=== PATIENT | female | born 1975 | race African-American/Black ===

== ENCOUNTER 2020-06-05 13:21 | Emergency (ER) | payer OTHER, SELFPAY ==
--- NOTE | ~2020-06-05 | XR_ITS ---
EXAMINATION: XR finger 5th LT min 2V DATE: 06/05/2020 13:40 INDICATION: Left fifth digit injury TECHNIQUE: Dorsal palmar, lateral and oblique views of the left fifth digit were obtained COMPARISON: None FINDINGS: Dorsal dislocation of the fifth middle phalanx at the proximal interphalangeal joint. No fracture tatiana ntified. Alignment and joint spaces and the remainder of the visualized left hand are normal. IMPRESSION: 1. Dorsal dislocation at the left fifth proximal interphalangeal joint. Reviewed, dictated and finalized at location A.
--- NOTE | ~2020-06-05 | XR_ITS ---
XR finger 5th LT min 2V DATE: 06/05/2020 14:23 INDICATION: Fifth digit injury yesterday. Pain. TECHNIQUE: Postoperative reduction AP and lateral views COMPARISON: 06/05/2020 left fifth digit FINDINGS: There is reduction of the previously reported dorsal dislocation at the proximal interphala ngeal joint. No fracture is evident. IMPRESSION: Reduction of dorsal dislocation at the proximal interphalangeal joint Reviewed, dictated and finalized at location A. IMPRESSION: Reduction of dorsal dislocation at the proximal interphalangeal asuncion nt
[2020-06-05 13:32] VITALS: BP 144/78; PULSE 97; RESP 16; TEMP 37.4; O2SAT 98
--- NOTE | 2020-06-05 14:06 | ED.UPPEXIN ---
HPI - Extremity Injury (Upper) General Chief Complaint: Extremity Injury, Upper Stated Complaint: riight hand 5th finger injury Time Seen by Provider: 06/05/20 13:49 Source: patient and RN notes reviewed Mode of arrival: ambulatory Limitations: no limitations History of Present Illness HPI narrative: Patient presents today complaint of injury to her left fifth finger. She injured it last night, causing pain. Denies numbness or tingling. Currently rates her pain 9/10 and has tried no [id number] interventions prior to arrival. Pain increases with movement. MD complaint: injury to: left and finger Related Data Home Medications Medication Instructions Recorded Confirmed amlodipine 06/05/20 hydrochlorothiazide 06/05/20 lisinopril-hydrochlorothiazide tablet 06/05/20 losartan 06/05/20 paroxetine HCl mg PO 06/05/20 trazodone 06/05/20 Allergies Allergy/AdvReac Type Severity Reaction Status Date / Time No Known Allergies Allergy Unknown Verified 09/24/19 18:44 Review of Systems Review of Systems: Narrative: CONSTITUTIONAL: Denies body aches, fever, chills, or sweats. EYES: Denies visual changes, redness, or discharge. ENT: Denies rhinorrhea, congestion, sore throat, or otalgia. CARDIOVASCULAR: Denies chest pain, palpitations, or edema. RESPIRATORY: Denies cough or dyspnea. GASTROINTESTINAL: Denies abdominal pain, nausea, vomiting, or diarrhea. GENITOURINARY: Denies dysuria or hematuria. SKIN: Denies rash, itching, or wounds. MUSCULOSKELETAL: Denies back pain, or myalgia. + Injury to left fifth finger NEUROLOGIC: Denies headache, numbness, tingling, or weakness. PSYCH: Denies depression or anxiety. PMFSH Comments At time of signature, I have reviewed and agree with nursing past medical, surgical, social and family history unless otherwise noted. Please see nursing chart for further information. There is no relevant family history pertinent to the presenting complaint Exam Narrative: Exam Narrative: GENERAL: Well-appearing, well-nourished, and in no acute distress. HEAD: Normocephalic, atraumatic. EYES: EOMI. No redness or drainage. Conjunctivae normal. ENT: Mucous membranes pink and moist. NECK: Normal AROM. Supple. No lymphadenopathy. CHEST: No respiratory distress. EXTREMITIES: Deformity to the left fifth finger, distal to the PIP. Distal sensation intact. Capillary refill normal. AROM is limited. No color change. SKIN: Warm, dry, no rash. Capillary refill normal. Normal skin turgor. NEURO: No focal deficits. Alert and oriented x3. Gait steady. PSYCH: Normal affect. No signs of depression or anxiety. Course Vital Signs Vital signs: Vital Signs Temperature 99.4 F 06/05/20 13:32 Pulse Rate 97 06/05/20 13:32 Respiratory Rate 16 06/05/20 13:32 Blood Pressure 144/78 H 06/05/20 13:32 Pulse Oximetry 98 06/05/20 13:32 Temperature 99.4 F 06/05/20 13:32 Pulse Rate 97 06/05/20 13:32 Respiratory Rate 16 06/05/20 13:32 Blood Pressure 144/78 H 06/05/20 13:32 Pulse Oximetry 98 06/05/20 13:32 Reviewed. Pt has been instructed to follow up with her PCP regarding her elevated blood pressure today. Procedures Orthopedic Joint Reduction Joint #1: Orthopedic Joint Reduction Date: 06/05/20 Orthopedic Joint Reduction Time: 14:06 Time Out Performed: Yes Side: left Joint Reduction Location: finger Analgesia: nerve block Pre-Procedure Neuro Vascular Exam: normal Local Anesthesia: lidocaine 1% Amount of anesthesic used (mL): 6 Shoulder Technique Used (if applicable): traction/counter-traction Post-reduction neuro exam: intact Post-reduction vascular: intact Post Reduction X-Ray Obtained: Yes Post Reduction X-Ray Results: reduced Splint Applied: Yes Patient Tolerated Procedure: well MDM - Extremity Injury (Upper) Imaging Data Radiologist's impression: ITS Impres
== END 2020-06-05 14:49 | disposition home or self-care (01) ==
PROVIDERS: Emergency Provider Nurse Practitioner
DX: S63.287A Dislocation of proximal interphalangeal joint of left little finger, initial encounter (principal); X58.XXXA Exposure to other specified factors, initial encounter; E78.00 Pure hypercholesterolemia, unspecified; I10 Essential (primary) hypertension
CPT/HCPCS: 26770; 73140; 99215; G0463

== ENCOUNTER 2021-11-06 13:22 | Outpatient (CLI) | payer OTHER, SELFPAY ==
--- NOTE | ~2021-11-06 | US_ITS ---
EXAMINATION: US pelvic complete w TV DATE: 11/06/2021 14:03 INDICATION: Excessive and frequent menstruation TECHNIQUE: Multiple transabdominal and endovaginal sonographic images of the pelvis were obtained. COMPARISON: None. FINDINGS: The uterus measures 9.3 x 5.1 x 4.9 cm. There is a 2.1 cm intramural fibroid of the uterine fundus. There is a 1.6 cm intramural fibroid of the lower anterior uterine body. The endometrial com plex measures 9 mm. The ovaries are not visualized however no adnexal abnormality is seen. There is n o free fluid in the pelvis. IMPRESSION: 1. Uterine fibroid, otherwise unremarkable examination. Reviewed, dictated and finalized at location A. AGENT
== END 2021-11-06 13:23 | disposition home or self-care (01) ==
LOC: ANHIMG 13:28
PROVIDERS: PCP Physician Assistant; Visit Provider Physician Assistant
DX: N92.0 Excessive and frequent menstruation with regular cycle (principal)
CPT/HCPCS: 76830; 76856

== ENCOUNTER 2022-04-28 14:33 | Inpatient (IN) | payer OTHER, SELFPAY ==
--- NOTE | ~2022-04-28 | NM_ITS ---
EXAMINATION: NM hepatobiliary wo pharm DATE: 05/01/2022 13:51 INDICATION: Cholecystitis. COMPARISON: Ultrasound 04/29/2022, CT abdomen and pelvis 04/28/2022 TECHNIQUE: 5.9 mCi Tc-99m mebrofenin (Choletec) was administered intravenously. Scintigraphic images of the abdomen were obtained for one hour. FINDINGS: There is delayed clearance of radiotracer from the blood pool. There is homogeneous tracer uptake by the liver. Activity progresses to the bowel and gallbladder. IMPRESSION: 1. No evidence of acute cholecystitis. 2. Delayed clearance of radiotracer from the blood pool, consistent with hepatocellular dysfunction. Reviewed, dictated and finalized at location A. IMPRESSION: 1. No evidence of acute cholecystitis. 2. Delayed clearance of radiotracer from the blood pool, consistent with hepato cellular dysfunction.
--- NOTE | ~2022-04-28 | US_ITS ---
US abdomen limited INDICATION: Right upper quadrant pain PROCEDURE: Realtime right upper abdominal ultrasound. COMPARISON: CT dated 04/28/2022 FINDINGS: The pancreas is normal without focal mass or pancreatic ductal dilation. Liver echotexture is diffusely increased, consistent with fatty infiltration. The hypodense mass seen on prior CT exam ination not appreciated on ultrasound. Examination limited by patient body habitus. There are mobile echogenic foci with posterior shadowing. There is gallbladder wall thickening. Positive sonographic Hawkins's sign. Common bile duct measures 6 mm. IMPRESSION: 1: Cholelithiasis with gallbladder wall thickening and positive sonographic Hawkins's sign, suspicious for acute cholecystitis. 2: Hypodense mass seen within the right hepatic lobe on prior CT is not appreciated by current study. Recommend correlation with MRI with and without contrast for further assessment. 2: Hepatic steatosis. Reviewed, dictated and finalized at location A. IMPRESSION: 1: Cholelithiasis with gallbladder wall thickening and positive sonographic Mur phy's sign, suspicious for acute cholecystitis. 2: Hypodense mass seen within the right hepatic lobe on prior CT is not appreci ated by current study. Recommend correlation with MRI with and without contrast for further assessment. 2: Hepatic steatosis.
--- NOTE | ~2022-04-28 | CT_ITS ---
EXAMINATION: CT abdomen pelvis wo con DATE: 04/28/2022 20:00 INDICATION: Abdomen pain, nausea and vomiting TECHNIQUE: Computed tomography (CT) of the abdomen and pelvis was performed without intravenous contr ast. The dose-length product was 1564.62 mGy-cm. Automated exposure control and iterative reconstruct ion technique were employed. COMPARISON: Ultrasound dated 11/06/2021. FINDINGS: Lung bases are unremarkable. Heart size normal. No significant pleural or pericardial effus ion. No significant vascular abnormality. No lymphadenopathy. The spleen, pancreas, adrenal glands an d kidneys are unremarkable. There is a subtle 1.5 cm hypodense lesion of the right hepatic lobe, not well characterized without contrast. Gallbladder is present. Possible gallstones. Nonobstructive bowel gas pattern. Small fat-containing umbilical hernia. Normal appendix. There is an exophytic uterine fibroid at the fundus measuring up to 5 cm. No free air or free fluid. Mild lumbar spondylosis. IMPRESSION: 1. Possible gallstones. Consider correlation with ultrasound. 2: Hypodense 1.5 cm mass of the right hepatic lobe not well characterized without contrast. Consider correlation with ultrasound. Reviewed, dictated and finalized at location A. IMPRESSION: 1. Possible gallstones. Consider correlation with ultrasound. 2: Hypodense 1.5 cm mass of the right hepatic lobe not well characterized witho ut contrast. Consider correlation with ultrasound.
[2022-04-28 14:45] VITALS: BP 157/107; PULSE 104; RESP 17; TEMP 36.6; O2SAT 98
--- NOTE | 2022-04-28 15:05 | ED.NAVMDI ---
HPI - Nausea/Vomiting/Diarrhea General Chief complaint: Nausea/Vomiting/Diarrhea <MAYRA Diaz Last Filed: 04/29/22 08:51> Stated complaint: nausea and vomiting with dizziness <MAYRA Diaz Last Filed: 04/29/22 08:51> Time Seen by Provider: 04/28/22 14:46 <MAYRA Diaz Last Filed: 04/29/22 08:51> History of Present Illness HPI Narrative: Patient is a 46-year-old female with a history of high blood pressure here for evaluation of nausea, vomiting for the past 3 days. Patient states she has been unable to tolerate any p.o., and notes that she vomits green/yellow emesis after every p.o. trial. Additionally reporting some lower abdominal discomfort with no exacerbating or alleviating factors. Denies new foods, no sick contacts. Patient presents today due to new onset numbness and tingling in her bilateral lower extremities and also over her abdomen, in addition to feeling weak. Fevers, chills, dysuria, hematuria, low back pain, diarrhea, constipation. Denies history of previous. <MAYRA Diaz Last Filed: 04/29/22 08:51> Related Data Home medications: Home Medications Medication Instructions Recorded Confirmed amlodipine 10 mg tablet 1 tablet PO DAILY 04/28/22 04/28/22 hydrochlorothiazide 12.5 mg capsule 1 cap PO DAILY 04/28/22 04/28/22 trazodone 100 mg tablet 1 tablet PO PRN PRN Insomnia 04/28/22 04/28/22 <MAYRA Diaz Last Filed: 04/29/22 08:51> Allergies/Adverse reactions: Allergies Allergy/AdvReac Type Severity Reaction Status Date / Time No Known Allergies Allergy Unknown Verified 04/28/22 22:03 <MAYRA Diaz Last Filed: 04/29/22 08:51> Review of Systems Review of Systems: Gen.: Denies fevers or chills Eyes: Denies eye pain or visual change ENT: Denies congestion Respiratory: Denies shortness of breath or cough CV: Denies chest pain or palpitations GI: Reports abdominal pain, nausea, vomiting. denies burning, urgency, frequency or hematuria Musculoskeletal: Denies back pain or muscle pain Neuro: Reports numbness and tingling of the bilateral lower extremities. 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 Head: normocephalic and atraumatic. EYES: PERRLA/EOMI, conjunctivae clear NOSE: No nasal drainage EARS: External ear normal in appearance THROAT: Oropharynx is clear. Mucous membranes are moist. NECK: Supple. No adenopathy, no masses. RESPIRATORY: Airway patent, respirations nonlabored. Clear to auscultation bilaterally, no rales, rhonchi, wheezing. CARDIOVASCULAR: 2+ DP and PT pulses bilaterally. Regular rate and rhythm without murmurs, rubs, or gallops. ABDOMINAL: Normoactive bowel sounds. Soft, nontender, nondistended. No rebound tenderness or guarding. MUSCULOSKELETAL: Extremities are warm and well-perfused. Moves all extremities well. No edema. NEURO: Normal speech. No focal neurologic deficits. SKIN: Skin is warm and dry. No rashes. PSYCHIATRIC: Normal affect/mood. <MAYRA Diaz Last Filed: 05/29/22 08:51> Course QUALITY ASSURANCE MONITOR FINAL/PA Physician Supervision
[2022-04-28] MEDS: ONDANSETRON INJ 4 MG/2 ML VIAL IV PUSH (15:20)
[2022-04-28] MEDS: SODIUM CHLORIDE 0.9% IV 1,000 ML 999 ML IV CONT ×2 (15:20→17:54)
[2022-04-28 16:07] LABS: Basophils Absolute Auto 0.1 K/mm3 (0.0-0.1); Basophils Percent Auto 1.1 % (0.2-1.2); Eosinophils Percent Auto 0.1 % (0-4.4); Hematocrit 39.5 % (37.0-47.0); Hemoglobin 13.4 g/dL (12.0-15.0); Immature Granulocyte Absolute 0.06 K/mm3 (0.00-0.031); Immature Granulocyte Percent A 0.6 % (0-0.5); Lymphocytes Absolute Auto 1.31 K/mm3 (0.9-3.2); Lymphocytes Percent Auto 12.5 % (18.3-44.2); Mean Corpuscular HGB Conc 33.9 g/dl (32-36); Mean Corpuscular Hemoglobin 34.9 pg (26-34); Mean Corpuscular Volume 102.9 fl (80-100); Mean Platelet Volume 10.1 fl (7.4-10.4); Monocytes Absolute Auto 0.8 K/mm3 (0.1-0.6); Monocytes Percent Auto 7.5 % (2.6-8.5); Neutrophils Absolute Auto 8.2 K/mm3 (1.3-6.7); Neutrophils Percent Auto 78.2 % (45.5-73.1); Nucleated Red Blood Cells Perc 0.3 % (0.0-0.2); Platelet Count Result 382 k/mm3 (150-375); Red Blood Count 3.84 M/mm3 (4.2-5.4); White Blood Count 10.5 K/mm3 (4.5-10.0)
[2022-04-28 16:25] LABS: Alanine Aminotransferase 49 U/L (6-35); Alkaline Phosphatase 59 U/L (38-126); Anion Gap 12 mmol/L (8-16); Aspartate Amino Transferase 127 U/L (14-36); Bilirubin,Total 1.9 mg/dL (0.2-1.3); Blood Urea Nitrogen 5 mg/dL (7-17); Calcium 7.5 mg/dL (8.4-10.2); Carbon Dioxide 34 mmol/L (22-30); Chloride 90 mmol/L (98-107); Estimated CRCL calculation 95 ml/min; Estimated Glomerular Filt Rate > 60; Glucose 95 mg/dL (65-110); Potassium 2.6 mmol/L (3.4-5.0); Sodium 136 mmol/L (137-145)
--- NOTE | 2022-04-28 16:28 | ECG_ITS ---
Measurements Intervals [place] Rate: 83 P: 44 PA: 150 QRS: -24 QRSD: 80 T: 61 QT: 372 QTc: 439 Interpretive Statements SINUS RHYTHM VENTRICULAR PREMATURE COMPLEX POOR R WAVE PROGRESSION, CONSIDER ANTERIOR INFARCT INFERIOR INFARCT, AGE INDETERMINATE BORDERLINE ST-T WAVE ABNORMALITY- ANT/HIGH LAT LEADS ABNORMAL ECG Electronically Signed On 04-28-2022 21:06:10 CDT by Armin Story D.O.
[2022-04-28 16:43] VITALS: PULSE 87
[2022-04-28 16:45] VITALS: PULSE 88; RESP 17
[2022-04-28 16:59] LABS: Phosphorus 3.9 mg/dL (2.5-4.5)
[2022-04-28] MEDS: METOCLOPRAMIDE HCL INJ 10 MG/2 ML VIAL IV PUSH (17:54)
[2022-04-28] MEDS: diphenhydrAMINE HCl INJ 50 MG/ML VIAL 25 MG IV PUSH (17:56)
[2022-04-28] MEDS: POTASSIUM CHLORIDE 20 MEQ PACKET (FOR LIQUID) 40 MEQ PO (18:03)
[2022-04-28 19:02] LABS: Lipase 82 U/L (23-300)
--- NOTE | 2022-04-28 19:20 | PC.NURSE ---
Report received from GUSTAVO Russell. This nurse assumed care of patient at this time.
[2022-04-28] MEDS: MAGNESIUM SULF 2 GM/WATER 50ML 2 GM/50 ML BAG IVPB (19:35)
[2022-04-28 19:48] LABS: Appearance Urine Slightly Cloudy (Clear); Bilirubin Urine 2+ (Negative); Color Urine Yellow (Yellow); Glucose Urine UA Negative (Negative); Ketones Urine 1+ mg/dL (Negative); Leukocyte Esterase Ur 1+ LEU/UL (Negative); Nitrate Urine Positive (Negative); Protein Urine 2+ mg/dL (Negative); Specific Grav Ur >= 1.030 (1.001-1.035); pH Urine 5.5 (5.0-9.0)
--- NOTE | 2022-04-28 19:52 | PC.NURSE ---
Patient taken to CT at this time.
[2022-04-28 19:54] LABS: Add Urine Microscopic? YES; Bacteria Urine 4+ /hpf; Blood Urine Trace-Intact (Negative); Mucus Urine Rare /lpf; Squamous Epithelial Cell Urine Many /hpf (Few); WBC Urine 21-30 /hpf
[2022-04-28 20:00] LABS: Anion Gap 8 mmol/L (8-16); Blood Urea Nitrogen 5 mg/dL (7-17); Calcium 7.1 mg/dL (8.4-10.2); Carbon Dioxide 34 mmol/L (22-30); Chloride 93 mmol/L (98-107); Estimated CRCL calculation 106 ml/min; Estimated Glomerular Filt Rate > 60; Glucose 90 mg/dL (65-110); Potassium 3.1 mmol/L (3.4-5.0); Sodium 135 mmol/L (137-145)
[2022-04-28 20:09] LABS: Magnesium 1.2 mg/dL (1.6-2.3)
--- NOTE | 2022-04-28 20:43 | PM.IMHP ---
H&P: [facility] History of Present Illness Date/Time: 04/28/22 20:43 Chief Complaint: nausea and vomiting Narrative: 46-year-old female with past medical history significant for high blood pressure is presenting with a 2-3 day history of nausea and vomiting. Patient states she is having difficulty tolerating any p.o. intake without vomiting up green yellow emesis. She also admitted to some lower abdominal pain that appears constant is not correlated with position or food intake. She denies any fevers or chills. No diarrhea or constipation. No chest pain or shortness of breath. Today she did notice some generalized weakness and some numbness and tingling in her bilateral lower extremities and lower abdomen. She states she has never felt anything like this before. Home medications are significant for Norvasc, hydrochlorothiazide and control pills and she denies missing any recent doses. In the ER, she was noted to have significant hypokalemia, hypomagnesemia and mild anion gap acidosis likely secondary to the emesis. She had a mild transaminitis as well. She was given Zofran regularly in as well as repletion of potassium and magnesium. Symptoms improved with these antiemetics. Urinalysis was negative for infection or . CT scan did show cholelithiasis and right upper quadrant ultrasound is pending. Review of Systems Review of Systems: Twelve point review of systems was reviewed and is negative except as noted in the [facility] Social History Social History Smoking status: Never smoker Alcohol intake: current Drinks per week: 7 Substance use: never Substance use type: does not use Other substance usage details: pt drinks 1/5 of mandy or whiskey per day since she was 42 Last use: 04/25/22 Spiritual care concerns: No Meds Home Medications and Allergies Home Medications Medication Instructions Recorded Confirmed Type amlodipine 10 mg tablet 1 tablet PO DAILY 04/28/22 04/28/22 History hydrochlorothiazide 12.5 mg capsule 1 cap PO DAILY 04/28/22 04/28/22 History trazodone 100 mg tablet 1 tablet PO PRN PRN Insomnia 04/28/22 04/28/22 History Allergies Allergy/AdvReac Type Severity Reaction Status Date / Time No Known Allergies Allergy Unknown Verified 04/28/22 22:03 Vital Signs Vital Signs - 24 hr 04/28/22 14:45 04/28/22 16:43 04/28/22 16:45 Temperature 98 F Pulse Rate 104 H 87 88 Respiratory Rate 17 17 Blood Pressure 157/107 H Pulse Oximetry 98 Exam Narrative: General: Patient resting comfortably in bed, no acute distress HEENT: Atraumatic, normocephalic, mucous membranes moist CV: Regular rate and rhythm, S1, S2, no murmurs rubs or gallops noted Lungs: Clear to auscultation bilaterally, no rales or crackles noted, no wheezes, good air entry Abdomen: Soft, nontender, nondistended Extremities: Normal to inspection, no edema noted Skin: No rashes noted, no lesions or wounds seen Psych: Euthymic, normal affect Neuro: Cranial nerves 2-12 grossly intact, strength 5/5 upper and lower extremities noted H&P: Results Labs Labs: Short CBC 04/28/22 Range/Units 15:52 WBC 10.5 H (4.5-10.0) K/mm3 Hgb 13.4 (12.0-15.0) g/dL Hct 39.5 (37.0-47.0) % Plt Count 382 H (150-375) k/mm3 BMP 04/28/22 04/28/22 15:52 19:46 Sodium 136 L 135 L Potassium 2.6 L* 3.1 L Chloride 90 L 93 L Carbon Dioxide 34 H 34 H BUN 5 L 5 L Creatinine 0.90 0.80 Glucose 95 90 Calcium 7.5 L 7.1 L Liver Function 04/28/22 Range/Units 15:52 Total Bilirubin 1.9 H (0.2-1.3) mg/dL AST 127 H (14-36) U/L ALT 49 H (6-35) U/L Alkaline Phosphatase 59 (38-126) U/L Albumin 4.0 (3.5-5.1) g/dL Urine 04/28/22 Range/Units 19:33 Urine Color Yellow (Yellow) Urine Appearance Slightly cloudy (Clear) Urine pH 5.5 (5.0-9.0) Ur Specific Clarence >= 1.030 (1.001-1.035)
[2022-04-28 21:02] VITALS: BP 152/86; PULSE 67; RESP 25
[2022-04-28 21:24] VITALS: BP 148/91; PULSE 95; RESP 20; O2SAT 98
--- NOTE | 2022-04-28 21:35 | ADMGEN ---
This patient, Opal Godinez, was admitted to Medical Room 253-01. Patient/family oriented to hospital policies and general routines including ID bracelet, bed and alarms, visiting hours, pain management, procedures, bathroom and other care routines, personal items, smoking policy, room service/diet, and visiting hours. Information on how to activate the Rapid Response Team has been discussed. Patient/Family are encouraged to report perceived risks to care and to ask questions if they do not understand what they are told or what they should do.
[2022-04-28 21:57] VITALS: BP 136/73; PULSE 91; RESP 18; TEMP 36.6; O2SAT 94; BMI 47.6
[2022-04-28] MEDS: SODIUM CHLORIDE 0.9% IV 1,000 ML 125 ML IV CONT (22:05)
[2022-04-29 04:46] VITALS: BP 147/87; PULSE 86; RESP 12; TEMP 36.6; O2SAT 93
[2022-04-29 05:23] LABS: Hematocrit 36.1 % (37.0-47.0); Hemoglobin 11.8 g/dL (12.0-15.0); Mean Corpuscular HGB Conc 32.7 g/dl (32-36); Mean Corpuscular Hemoglobin 34.6 pg (26-34); Mean Corpuscular Volume 105.9 fl (80-100); Mean Platelet Volume 10.8 fl (7.4-10.4); Platelet Count Result 226 k/mm3 (150-375); Red Blood Count 3.41 M/mm3 (4.2-5.4); Red Cell Distribution Width 19.3 % (11.5-14.5); White Blood Count 8.6 K/mm3 (4.5-10.0)
[2022-04-29 06:02] LABS: Alanine Aminotransferase 30 U/L (6-35); Alkaline Phosphatase 39 U/L (38-126); Anion Gap 8 mmol/L (8-16); Aspartate Amino Transferase 82 U/L (14-36); Bilirubin,Total 1.6 mg/dL (0.2-1.3); Blood Urea Nitrogen 5 mg/dL (7-17); Calcium 6.9 mg/dL (8.4-10.2); Carbon Dioxide 29 mmol/L (22-30); Chloride 98 mmol/L (98-107); Estimated CRCL calculation 116 ml/min; Estimated Glomerular Filt Rate > 60; Glucose 87 mg/dL (65-110); Magnesium 1.3 mg/dL (1.6-2.3); Potassium 3.1 mmol/L (3.4-5.0); Sodium 135 mmol/L (137-145)
[2022-04-29] MEDS: SODIUM CHLORIDE 0.9% IV 1,000 ML 125 ML IV CONT ×3 (06:13→23:44)
[2022-04-29 08:00] VITALS: PULSE 86; RESP 12; O2SAT 93
[2022-04-29] MEDS: MAGNESIUM SULF 2 GM/WATER 50ML 2 GM/50 ML BAG IVPB (08:26)
[2022-04-29] MEDS: POTASSIUM CHLORIDE 20 MEQ PACKET (FOR LIQUID) 40 MEQ PO (08:26)
[2022-04-29] MEDS: hydroCHLOROthiazide 12.5 MG CAPSULE PO (08:27)
[2022-04-29] MEDS: amLODIPine BESYLATE 5 MG TABLET 10 MG PO (08:27)
--- NOTE | 2022-04-29 09:07 | PC.NURSE ---
US abd scheduled for 3pm today
--- NOTE | 2022-04-29 09:56 | PC.NURSE ---
pt received magnesium 2 g iv and potassium 40 meq po this morning
--- NOTE | 2022-04-29 13:13 | PM.CNGS ---
Assessment and Plan Assessment and plan (1) Nausea and vomiting: Code(s): R11.2 - Nausea with vomiting, unspecified Status: Acute Assessment and Plan: patient presents with persistent nausea and vomiting over the past 2 weeks and was noted to have elevated liver enzymes on labs in the emergency department. While this could be related to her gallbladder, this also could be related to her history of heavy alcohol use. Awaiting further workup with gallbladder ultrasound today. After ultrasound, patient is okay to have a clear liquid diet and advance as tolerated. 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 If liver enzymes continue to rise, she might need further evaluation by GI. (2) Upper abdominal pain: Code(s): R10.10 - Upper abdominal pain, unspecified Status: Acute (3) Elevated liver enzymes: Code(s): R74.8 - Abnormal levels of other serum enzymes Status: Acute (4) BMI 45.0-49.9, adult: Code(s): Z68.42 - Body mass index [BMI] 45.0-49.9, adult Status: Acute (5) Heavy alcohol use: Code(s): Z78.9 - Other specified health status Status: Acute History of Present Illness Consult details Consult date: 04/29/22 Reason for consult: other ( Upper abdominal pain) Requesting physician: Lindy Oden DO Narrative: this is a 46-year-old woman who I am asked to see for possible cholelithiasis. The patient presented to the emergency department on 04/28/2022 with nausea and vomiting and upper abdominal pain. The patient states that her nausea and vomiting has been going on for the past 2 weeks. She does not recall anything that she ate that started this. She has no other ill contacts. She states that she can have the nausea and vomiting even with drinking water. She began experiencing some upper abdominal pain after the nausea and vomiting started. She states that this feels more like a muscle pain from vomiting so much. She has had some diarrhea but this has not been very frequent. In the emergency department she was noted to have some electrolyte abnormalities and was also noted to have elevated liver enzymes. CT abdomen and pelvis without contrast in the emergency department showed possible cholelithiasis but no other acute abnormalities. She was admitted for further workup and treatment. She has an ultrasound scheduled for today but it has not been done yet. Review of Systems Review of Systems: All systems reviewed & are unremarkable except as noted in HPI and below Constitutional: Constitutional: Denies chills and Denies fever(s) Eyes: Eyes: Denies change in vision ENT: Denies hearing loss, Denies neck pain and Denies sore throat Cardiovascular: Cardiovascular: Denies chest pain and Denies dyspnea Respiratory: Respiratory: Denies cough, Denies dyspnea and Denies wheezing Gastrointestinal: Gastrointestinal: Reports as per HPI Genitourinary: Genitourinary: Denies hematuria and Denies dysuria Musculoskeletal: Musculoskeletal: Denies arthralgias, Denies joint swelling and Denies neck pain Allergic/Immunologic: Allergic/Immunologic: Denies wheezing [facility] Past Medical History Medical History (Updated 04/29/22 @ 13:20 by Los Dill DO) Hypertension Surgical History Surgical History (Updated 04/29/22 @ 13:18 by Los Dill DO) History of tubal ligation Family History Family History Other Unknown family medical history Social History Social History Smoking status: Never smoker Alcohol intake: current Drinks per week: 7 Substance use: never Substance use type: does not use Other subst
[2022-04-29 13:15] VITALS: BP 146/84; PULSE 83; RESP 20; TEMP 36.6; O2SAT 92
--- NOTE | 2022-04-29 13:42 | PM.IMPN ---
Progress Note: A&P Assessment and Plan (1) Nausea and vomiting: Code(s): R11.2 - Nausea with vomiting, unspecified Status: Acute Assessment and Plan: Presented with persistent nausea and vomiting ongoing for 2 weeks May be related to cholelithiasis, right upper quadrant ultrasound pending Nausea/vomiting resolved Continue with clear liquid diet. Advance as tolerated Antiemetics available as needed Continue with gentle IV fluids until tolerating oral intake (2) Cholelithiasis: Code(s): K80.20 - Calculus of gallbladder without cholecystitis without obstruction Status: Acute Assessment and Plan: CT abdomen/pelvis showed possible gallstones Right upper quadrant ultrasound is pending Plan as above Appreciate general surgery consultation (3) Hypokalemia: Code(s): E87.6 - Hypokalemia Status: Acute Assessment and Plan: Likely secondary to nausea/vomiting Potassium 3.1 today Administer 40 mEq p.o. KCl Monitor BMP (4) Hypomagnesemia: Code(s): E83.42 - Hypomagnesemia Status: Acute Assessment and Plan: Likely secondary to nausea/vomiting Magnesium 1.3 Administer to g IV magnesium sulfate Repeat magnesium (5) Hypertension: Code(s): I10 - Essential (primary) hypertension Status: Acute Assessment and Plan: Blood pressure reviewed and has been stable. Last BP 146/84 Continue amlodipine and hydrochlorothiazide Monitor BP trends (6) Abnormal CT of liver: Code(s): R93.2 - Abnormal findings on diagnostic imaging of liver and biliary tract Status: Acute Assessment and Plan: CT of abdomen/pelvis showed hypodense 1.5 cm mass of right hepatic lobe Recommend ultrasound evaluation. Abdominal ultrasound pending Subjective Date/time seen: 04/29/22 13:42 Interval history: Date of service: 04/29/2022 Opal Godinez is a 46-year-old female with a history of hypertension who is seen in follow-up for nausea and vomiting. She is feeling slightly improved today. She describes a tightness in her stomach. She has mild pain in the right upper quadrant that she states radiates through to the back. No further episodes of nausea and vomiting. She is tolerating clear liquids. Denies fevers, chills. She complains of tingling in her lower extremities. Denies muscle cramping. Denies shortness breath, cough, or chest pain. Denies diarrhea. Denies urinary symptoms. Review of Systems Review of Systems: All systems reviewed & are unremarkable except as noted in HPI and below Exam Narrative: General: Obese, well-appearing 46-year-old female, lying supine in bed, comfortable, NARD Neuro: awake, alert and oriented x4, speech clear, no focal neuro deficits noted HEENMT: normocephalic, atraumatic, EOMI, sclerae anicteric, moist oral mucosa Respiratory: clear to auscultation bilaterally, nonlabored breathing Cardio: regular rate, regular rhythm with S1-S2 Abdomen: Obese abdomen normoactive bowel sounds, soft, tender to palpation in right upper quadrant, no rigidity or guarding Extremities: no edema, erythema, or tenderness to palpation, DP pulses 2+ bilaterally Skin: no rashes or lesions, warm and dry Psych: appropriate mood and affect, judgment and insight intact Objective Data Vital Signs Vital Signs: Vital Signs - 24 hr 04/28/22 14:45 04/28/22 16:43 04/28/22 16:45 Temperature 98 F Pulse Rate 104 H 87 88 Respiratory Rate 17 17 Blood Pressure 157/107 H Pulse Oximetry 98 Oxygen Delivery 04/28/22 21:02 04/28/22 21:24 04/28/22 21:57 Temperature 97.8 F Pulse Rate 67 95 91 Respiratory Rate 25 H 20 18 Blood Pressure 152/86 H 148/91 H 136/73 Pulse Oximetry 98 94 Oxygen Delivery 04/28/22 22:12 04/29/22 04:46 04/29/22 08:00 Temperature 97.8 F Pulse Rate 86 86 Respiratory Rate 12 12 Blood Pressure 147/87 H Pulse Oximetry 93 93 Oxygen Delivery Room
--- NOTE | 2022-04-29 14:24 | PC.NURSE ---
us to be done at pt bedside.
[2022-04-29 20:00] VITALS: PULSE 84; RESP 18; O2SAT 93
[2022-04-29 20:20] VITALS: BP 137/88; PULSE 84; RESP 18; TEMP 36.4; O2SAT 93
[2022-04-29] MEDS: traZODone HCL 50 MG TABLET 100 MG PO (20:42)
[2022-04-30 04:53] LABS: Basophils Absolute Auto 0.1 K/mm3 (0.0-0.1); Basophils Percent Auto 1.6 % (0.2-1.2); Eosinophils Absolute Auto 0.2 K/mm3 (0-0.3); Eosinophils Percent Auto 2.1 % (0-4.4); Hematocrit 35.1 % (37.0-47.0); Hemoglobin 12.2 g/dL (12.0-15.0); Immature Granulocyte Absolute 0.06 K/mm3 (0.00-0.031); Immature Granulocyte Percent A 0.8 % (0-0.5); Lymphocytes Absolute Auto 2.09 K/mm3 (0.9-3.2); Lymphocytes Percent Auto 27.4 % (18.3-44.2); Mean Corpuscular HGB Conc 34.8 g/dl (32-36); Mean Corpuscular Hemoglobin 35.6 pg (26-34); Mean Corpuscular Volume 102.3 fl (80-100); Mean Platelet Volume 9.5 fl (7.4-10.4); Monocytes Absolute Auto 0.8 K/mm3 (0.1-0.6); Monocytes Percent Auto 10.8 % (2.6-8.5); Neutrophils Absolute Auto 4.4 K/mm3 (1.3-6.7); Neutrophils Percent Auto 57.3 % (45.5-73.1); Platelet Count Result 311 k/mm3 (150-375); Red Blood Count 3.43 M/mm3 (4.2-5.4); Red Cell Distribution Width 18.7 % (11.5-14.5); White Blood Count 7.6 K/mm3 (4.5-10.0)
[2022-04-30 05:03] LABS: INR 1.2; Prothrombin Time 14.7 Seconds (11.1-14.7)
[2022-04-30 05:05] LABS: Alanine Aminotransferase 34 U/L (6-35); Albumin Level 3.2 g/dL (3.5-5.1); Alkaline Phosphatase 43 U/L (38-126); Anion Gap 6 mmol/L (8-16); Aspartate Amino Transferase 109 U/L (14-36); Bilirubin,Total 1.5 mg/dL (0.2-1.3); Blood Urea Nitrogen 3 mg/dL (7-17); Calcium 6.4 mg/dL (8.4-10.2); Carbon Dioxide 31 mmol/L (22-30); Chloride 96 mmol/L (98-107); Estimated CRCL calculation 134 ml/min; Estimated Glomerular Filt Rate > 60; Glucose 102 mg/dL (65-110); Magnesium 1.5 mg/dL (1.6-2.3); Partial Thromboplastin Time 28.2 SECONDS (22.3-36.8); Phosphorus 3.8 mg/dL (2.5-4.5); Potassium 2.7 mmol/L (3.4-5.0); Sodium 133 mmol/L (137-145)
[2022-04-30] MEDS: MAGNESIUM SULF 4 GM/WATER100ML 4 GM/100 ML BAG IVPB (05:45)
[2022-04-30] MEDS: POTASSIUM CHLORIDE INJ 40 MEQ in SODIUM CHLORIDE 0.9% IV 500 ML 130 MEQ IVPB (05:45)
[2022-04-30] MEDS: POTASSIUM CHLORIDE 20 MEQ PACKET (FOR LIQUID) 80 MEQ PO (05:45)
[2022-04-30 06:00] VITALS: BP 140/89; PULSE 88; RESP 14; TEMP 36.4; O2SAT 93
[2022-04-30] MEDS: ENOXAPARIN 40 MG/0.4 ML SYRINGE SUB-Q (08:23)
[2022-04-30] MEDS: ONDANSETRON INJ 4 MG/2 ML VIAL IV PUSH (08:50)
[2022-04-30] MEDS: amLODIPine BESYLATE 5 MG TABLET 10 MG PO (09:20)
[2022-04-30] MEDS: hydroCHLOROthiazide 12.5 MG CAPSULE PO (09:21)
[2022-04-30 09:42] VITALS: O2SAT 93
--- NOTE | 2022-04-30 10:20 | PM.PNGS ---
Progress Note: A&P Assessment and Plan (1) Chronic cholecystitis with calculus: Code(s): K80.10 - Calculus of gallbladder with chronic cholecystitis without obstruction Status: Acute Assessment and Plan: Continues to have N/V. Will get HIDA scan tomorrow. Patient is a heavy drinker. Watch for signs of withdrawal. Replace electrolytes. (2) Elevated liver enzymes: Code(s): R74.8 - Abnormal levels of other serum enzymes Status: Acute (3) Heavy alcohol use: Code(s): Z78.9 - Other specified health status Status: Acute (4) BMI 45.0-49.9, adult: Code(s): Z68.42 - Body mass index [BMI] 45.0-49.9, adult Status: Acute (5) Hypokalemia: Code(s): E87.6 - Hypokalemia Status: Acute (6) Hypomagnesemia: Code(s): E83.42 - Hypomagnesemia Status: Acute Subjective Subjective Date/Time Seen: 04/30/22 10:20 Interval history: Still having nausea and upper abdominal pain. Did well last night, but symptoms returned this morning. Exam GI: Inspection: non-distended and obesity GI Palp: Yes Soft to palpation and Yes Tenderness to palpation present (GI) (mild upper abdominal pain) Percussion: Yes normal to percussion Auscultation: normal bowel sounds Objective Data Vital Signs Vital Signs: Vital Signs - 24 hr 04/29/22 13:15 04/29/22 20:20 04/29/22 20:00 Temperature 36.6 C 36.4 C Pulse Rate 83 84 84 Respiratory Rate 20 18 18 Blood Pressure 146/84 H 137/88 Pulse Oximetry 92 93 93 Oxygen Delivery Room Air 04/30/22 06:00 04/30/22 09:42 Temperature 36.4 C Pulse Rate 88 Respiratory Rate 14 Blood Pressure 140/89 Pulse Oximetry 93 93 Oxygen Delivery Room Air Intake/Output Intake/Output: Intake & Output 04/27/22 04/28/22 04/29/22 04/30/22 23:59 23:59 23:59 23:59 Intake Total 2049 4160 750 Output Total 1700 Balance 2049 2460 750 Meds/Results Medications: Active Medications Generic Name Dose Route Start Last Admin Trade Name Freq PRN Reason Stop Dose Admin Amlodipine Besylate 10 mg 04/29/22 09:00 04/30/22 09:20 Amlodipine Besylate 5 Mg Tablet PO 10 mg DAILY NYLA Administration Enoxaparin Sodium 40 mg 04/30/22 09:00 04/30/22 08:23 Enoxaparin 40 Mg/0.4 Ml Syringe SUB-Q 40 mg DAILY NYLA Administration Hydrochlorothiazide 12.5 mg 04/29/22 09:00 04/30/22 09:21 Hydrochlorothiazide 12.5 Mg Capsule PO 12.5 mg DAILY NYLA Administration Sodium Chloride 1,000 mls @ 125 mls/hr 04/28/22 20:45 04/29/22 23:44 Normal Saline Iv IV CONT 125 mls/hr .Q8H NYLA Administration Acetaminophen 1,000 mg in 100 mls @ 400 mls/hr 04/29/22 12:13 04/30/22 08:40 Ofirmev 1,000 Mg Ivpb IVPB 04/30/22 12:12 Infused Q6H PRN Infusion Pain Rated 4-6 Ondansetron HCl 4 mg 04/30/22 08:31 04/30/22 08:50 Ondansetron Inj 4 Mg/2 Ml Vial IV PUSH 4 mg Q4H PRN Administration Nausea And Vomiting Trazodone HCl 100 mg 04/29/22 03:27 04/29/22 20:42 Trazodone Hcl 50 Mg Tablet PO 100 mg PRN PRN Administration Insomnia Radiology Results: ITS Impressions Abdomen/Pelvis CT 04/28/22 20:12 IMPRESSION: 1. Possible gallstones. Consider correlation with ultrasound. 2: Hypodense 1.5 cm mass of the right hepatic lobe not well characterized without contrast. Consider correlation with ultrasound. Abdomen Ultrasound 04/29/22 14:59 IMPRESSION: 1: Cholelithiasis with gallbladder wall thickening and positive sonographic Hawkins's sign, suspicious for acute cholecystitis. 2: Hypodense mass seen within the right hepatic lobe on prior CT is not appreciated by current study. Recommend correlation with MRI with and without contrast for further assessment. 2: Hepatic steatosis. Labs Labs: Laboratory Results - last 24 hr 04/30/22 04/30/22 04/30/22 04:42 04:42 04:42 WBC 7.6 RBC 3.43 L Hgb 12.2 Hct 35.1 L MCV 102.3 H MCH 35.6 H MC
[2022-04-30] MEDS: THIAMINE HCL 100 MG TABLET PO (11:42)
[2022-04-30] MEDS: FOLIC ACID 1 MG TABLET PO (11:42)
[2022-04-30] MEDS: SODIUM CHLORIDE 0.9% IV 1,000 ML 125 ML IV CONT (13:27)
--- NOTE | 2022-04-30 13:46 | PM.IMPN ---
Progress Note: A&P Assessment and Plan (1) Nausea and vomiting: Code(s): R11.2 - Nausea with vomiting, unspecified Status: Acute Assessment and Plan: Presented with persistent nausea and vomiting ongoing for 2 weeks May be related to cholelithiasis/cholecystitis RUQ ultrasound revealed gallstones with gallbladder wall thickening and positive sonographic Hawkins sign. Plan for HIDA scan tomorrow morning Continue with full liquid diet. Advance as tolerated Antiemetics available as needed Continue with gentle IV fluids until tolerating oral intake (2) Cholelithiasis: Code(s): K80.20 - Calculus of gallbladder without cholecystitis without obstruction Status: Acute Assessment and Plan: CT abdomen/pelvis showed possible gallstones Plan as above Appreciate general surgery consultation (3) Heavy alcohol use: Code(s): Z78.9 - Other specified health status Status: Acute Assessment and Plan: Patient reports drinking a fifth of liquor per day for 5 years No evidence of acute alcohol withdrawal Implement CIWA protocol Ativan prn CIWA >8 Thiamine and folic acid Educate regarding alcohol cessation (4) Hypokalemia: Code(s): E87.6 - Hypokalemia Status: Acute Assessment and Plan: Likely secondary to nausea/vomiting Potassium 2.7 today Potassium has been replaced. Recheck this afternoon and supplemented as needed Monitor BMP (5) Hypomagnesemia: Code(s): E83.42 - Hypomagnesemia Status: Acute Assessment and Plan: Likely secondary to nausea/vomiting Magnesium 1.5 Magnesium replaced and will be rechecked this afternoon (6) Hypertension: Code(s): I10 - Essential (primary) hypertension Status: Acute Assessment and Plan: Blood pressure reviewed and has been stable. Last BP 140/89 Continue amlodipine and hydrochlorothiazide Monitor BP trends (7) Abnormal CT of liver: Code(s): R93.2 - Abnormal findings on diagnostic imaging of liver and biliary tract Status: Acute Assessment and Plan: CT of abdomen/pelvis showed hypodense 1.5 cm mass of right hepatic lobe Follow up ultrasound did not appreciate hypodense mass. Hepatic steatosis identified. Recommend dietary and lifestyle change. Subjective Date/time seen: 04/30/22 13:46 Interval history: Date of service: 04/30/2022 Opal Godinez is a 46-year-old female with a history of hypertension who is seen in follow-up for nausea and vomiting. She reports 2 episodes of emesis this morning. She describes abdominal discomfort across her entire epigastric region that she rates as 6/10. She feels hungry today and would like to try to have something to eat but has not been able to keep down liquids. She had 2 soft bowel movements today. She describes a stiffness in her lower legs. Denies fevers, chills, sweats. No tremors. Denies feeling anxiety. No shortness breath, cough, chest pain, palpitations. Review of Systems Review of Systems: All systems reviewed & are unremarkable except as noted in HPI and below Exam Narrative: General: Obese, well-appearing 46-year-old female, lying supine in bed, comfortable, NARD Neuro: awake, alert and oriented x4, speech clear, no focal neuro deficits noted HEENMT: normocephalic, atraumatic, EOMI, sclerae anicteric, moist oral mucosa Respiratory: clear to auscultation bilaterally, nonlabored breathing Cardio: regular rate, regular rhythm with S1-S2 Abdomen: Obese abdomen, normoactive bowel sounds, soft, tender to palpation across epigastrium, no rigidity or guarding Extremities: no edema, erythema, or tenderness to palpation, DP pulses 2+ bilaterally Skin: no rashes or lesions, warm and dry Psych: appropriate mood and affect, judgment and insight intact Objective Data Vital Signs Vital Signs: Vital Signs - 24 hr 04/29/22 20:20 04/29/22 20:00 04/30/22 06:00 Temper
[2022-04-30 14:00] VITALS: BP 130/80; PULSE 85; RESP 14; TEMP 36.8; O2SAT 94
[2022-04-30 15:15] LABS: Potassium 3.4 mmol/L (3.4-5.0)
[2022-04-30] MEDS: POTASSIUM CHLORIDE 20 MEQ PACKET (FOR LIQUID) PO (16:01)
[2022-04-30] MEDS: HYDROcodone/acetaminophen (*CRX) 5-325 MG TABLET 1 TAB PO (17:50)
[2022-04-30 19:59] VITALS: BP 141/79; PULSE 88; RESP 20; TEMP 36.3; O2SAT 92
[2022-04-30] MEDS: traZODone HCL 50 MG TABLET 100 MG PO (22:51)
[2022-04-30] MEDS: SODIUM CHLORIDE 0.9% IV 1,000 ML 100 ML IV CONT (22:52)
[2022-05-01 04:49] VITALS: BP 153/94; PULSE 86; RESP 20; TEMP 36.2; O2SAT 95
[2022-05-01 05:57] LABS: Hematocrit 35.6 % (37.0-47.0); Hemoglobin 11.7 g/dL (12.0-15.0); Mean Corpuscular HGB Conc 32.9 g/dl (32-36); Mean Corpuscular Hemoglobin 34.6 pg (26-34); Mean Corpuscular Volume 105.3 fl (80-100); Mean Platelet Volume 10.2 fl (7.4-10.4); Platelet Count Result 205 k/mm3 (150-375); Red Blood Count 3.38 M/mm3 (4.2-5.4); White Blood Count 9.7 K/mm3 (4.5-10.0)
[2022-05-01 06:09] LABS: Alanine Aminotransferase 36 U/L (6-35); Albumin Level 3.2 g/dL (3.5-5.1); Alkaline Phosphatase 43 U/L (38-126); Anion Gap 4 mmol/L (8-16); Aspartate Amino Transferase 112 U/L (14-36); Bilirubin,Total 1.3 mg/dL (0.2-1.3); Blood Urea Nitrogen 2 mg/dL (7-17); Carbon Dioxide 31 mmol/L (22-30); Chloride 98 mmol/L (98-107); Estimated CRCL calculation 134 ml/min; Estimated Glomerular Filt Rate > 60; Glucose 100 mg/dL (65-110); Magnesium 1.7 mg/dL (1.6-2.3); Potassium 2.9 mmol/L (3.4-5.0); Sodium 133 mmol/L (137-145)
[2022-05-01] MEDS: MAGNESIUM SULF 2 GM/WATER 50ML 2 GM/50 ML BAG IVPB (07:57)
[2022-05-01] MEDS: POTASSIUM CHLORIDE INJ 40 MEQ in SODIUM CHLORIDE 0.9% IV 500 ML 130 MEQ IVPB (07:57)
[2022-05-01] MEDS: ENOXAPARIN 40 MG/0.4 ML SYRINGE SUB-Q (07:57)
[2022-05-01] MEDS: THIAMINE HCL 100 MG TABLET PO (07:58)
[2022-05-01] MEDS: FOLIC ACID 1 MG TABLET PO (07:58)
[2022-05-01 08:00] VITALS: BP 147/84
[2022-05-01] MEDS: hydroCHLOROthiazide 12.5 MG CAPSULE PO (08:00)
[2022-05-01] MEDS: amLODIPine BESYLATE 5 MG TABLET 10 MG PO (08:00)
--- NOTE | 2022-05-01 13:20 | P.PNIM_ITS ---
Progress Note: A&P Assessment and Plan (1) Nausea and vomiting: Code(s): R11.2 - Nausea with vomiting, unspecified Status: Acute Assessment and Plan: Presented with persistent nausea and vomiting ongoing for 2 weeks * May be related to cholelithiasis/cholecystitis * RUQ ultrasound revealed gallstones with gallbladder wall thickening and positive sonographic Hawkins sign. * HIDA scan pending * Patient currently NPO for HIDA. Was tolerating full liquids. Advance as tolerated per General surgery recommendations * Antiemetics available as needed * Continue with gentle IV fluids until tolerating oral intake (2) Cholelithiasis: Code(s): K80.20 - Calculus of gallbladder without cholecystitis without obstruction Status: Acute Assessment and Plan: CT abdomen/pelvis showed possible gallstones * Plan as above * LFTs mildly elevated today. Continue to monitor * Appreciate general surgery consultation (3) Heavy alcohol use: Code(s): Z78.9 - Other specified health status Status: Acute Assessment and Plan: Patient reports drinking a fifth of liquor per day for 5 years * No evidence of acute alcohol withdrawal * Continue CIWA protocol. Scores ranging 0-1 * Ativan prn CIWA >8 * Thiamine and folic acid * Educate regarding alcohol cessation (4) Hypokalemia: Code(s): E87.6 - Hypokalemia Status: Acute Assessment and Plan: Likely secondary to nausea/vomiting and poor PO intake * Potassium 2.9 today * Supplement potassium. 40 mEq IV KCl this morning. Will give additional 40 IV this evening * Monitor BMP (5) Hypomagnesemia: Code(s): E83.42 - Hypomagnesemia Status: Acute Assessment and Plan: Likely secondary to nausea/vomiting * Magnesium 1.7 * 2 g IV mag sulfate (6) Hypertension: Code(s): I10 - Essential (primary) hypertension Status: Acute Assessment and Plan: Blood pressure reviewed and has been stable. Last BP 147/84 * Continue amlodipine and hydrochlorothiazide * Monitor BP trends (7) Abnormal CT of liver: Code(s): R93.2 - Abnormal findings on diagnostic imaging of liver and biliary tract Status: Acute Assessment and Plan: CT of abdomen/pelvis showed hypodense 1.5 cm mass of right hepatic lobe * Follow up ultrasound did not appreciate hypodense mass. Hepatic steatosis identified. Recommend dietary and lifestyle change. Subjective Date/time seen: 05/01/22 13:20 Interval history: Date of service: 05/01/2022 Opal Godinez is a 46-year-old female with a history of hypertension who is seen in follow-up for nausea and vomiting. She is feeling better today. No episodes of vomiting. No nausea. She has been NPO today while awaiting HIDA. Continues to endorse 6/10 epigastric pain. She reports two formed bowel movements today. Denies diarrhea. No fever or chills. Denies SOB, cough, chest pain. Reports tingling in the lower extremities. Denies muscle cramping. Review of Systems Review of Systems: All systems reviewed & are unremarkable except as noted in HPI and below Exam Narrative: General: Obese, well-appearing 46-year-old female, sitting up in bed, comfortable, NARD Neuro: awake, alert and oriented x4, speech clear, no focal neuro deficits noted HEENMT: normocephalic, atraumatic, EOMI, sclerae anicteric, moist oral mucosa Respiratory: clear to auscultation bilaterally, nonlabored breathing Cardio: reg
--- NOTE | 2022-05-01 13:20 | PM.IMPN ---
Progress Note: A&P Assessment and Plan (1) Nausea and vomiting: Code(s): R11.2 - Nausea with vomiting, unspecified Status: Acute Assessment and Plan: Presented with persistent nausea and vomiting ongoing for 2 weeks May be related to cholelithiasis/cholecystitis RUQ ultrasound revealed gallstones with gallbladder wall thickening and positive sonographic Hawkins sign. HIDA scan pending Patient currently NPO for HIDA. Was tolerating full liquids. Advance as tolerated per General surgery recommendations Antiemetics available as needed Continue with gentle IV fluids until tolerating oral intake (2) Cholelithiasis: Code(s): K80.20 - Calculus of gallbladder without cholecystitis without obstruction Status: Acute Assessment and Plan: CT abdomen/pelvis showed possible gallstones Plan as above LFTs mildly elevated today. Continue to monitor Appreciate general surgery consultation (3) Heavy alcohol use: Code(s): Z78.9 - Other specified health status Status: Acute Assessment and Plan: Patient reports drinking a fifth of liquor per day for 5 years No evidence of acute alcohol withdrawal Continue CIWA protocol. Scores ranging 0-1 Ativan prn CIWA >8 Thiamine and folic acid Educate regarding alcohol cessation (4) Hypokalemia: Code(s): E87.6 - Hypokalemia Status: Acute Assessment and Plan: Likely secondary to nausea/vomiting and poor PO intake Potassium 2.9 today Supplement potassium. 40 mEq IV KCl this morning. Will give additional 40 IV this evening Monitor BMP (5) Hypomagnesemia: Code(s): E83.42 - Hypomagnesemia Status: Acute Assessment and Plan: Likely secondary to nausea/vomiting Magnesium 1.7 2 g IV mag sulfate (6) Hypertension: Code(s): I10 - Essential (primary) hypertension Status: Acute Assessment and Plan: Blood pressure reviewed and has been stable. Last BP 147/84 Continue amlodipine and hydrochlorothiazide Monitor BP trends (7) Abnormal CT of liver: Code(s): R93.2 - Abnormal findings on diagnostic imaging of liver and biliary tract Status: Acute Assessment and Plan: CT of abdomen/pelvis showed hypodense 1.5 cm mass of right hepatic lobe Follow up ultrasound did not appreciate hypodense mass. Hepatic steatosis identified. Recommend dietary and lifestyle change. Subjective Date/time seen: 05/01/22 13:20 Interval history: Date of service: 05/01/2022 Opal Godinez is a 46-year-old female with a history of hypertension who is seen in follow-up for nausea and vomiting. She is feeling better today. No episodes of vomiting. No nausea. She has been NPO today while awaiting HIDA. Continues to endorse 6/10 epigastric pain. She reports two formed bowel movements today. Denies diarrhea. No fever or chills. Denies SOB, cough, chest pain. Reports tingling in the lower extremities. Denies muscle cramping. Review of Systems Review of Systems: All systems reviewed & are unremarkable except as noted in HPI and below Exam Narrative: General: Obese, well-appearing 46-year-old female, sitting up in bed, comfortable, NARD Neuro: awake, alert and oriented x4, speech clear, no focal neuro deficits noted HEENMT: normocephalic, atraumatic, EOMI, sclerae anicteric, moist oral mucosa Respiratory: clear to auscultation bilaterally, nonlabored breathing Cardio: regular rate, regular rhythm with S1-S2 Abdomen: Obese abdomen, normoactive bowel sounds, soft, tender to palpation across epigastrium, no rigidity or guarding Extremities: no edema, erythema, or tenderness to palpation, DP pulses 2+ bilaterally Skin: no rashes or lesions, warm and dry Psych: appropriate mood and affect, judgment and insight intact Objective Data Vital Signs Vital Signs: Vital Signs - 24 hr 04/30/22 14:00 04/30/22 19:59 05/01/22 04:49 Temperature 98.2 F 97.3 F L 97.1
[2022-05-01] MEDS: SODIUM CHLORIDE 0.9% IV 1,000 ML 100 ML IV CONT ×2 (14:25→21:39)
[2022-05-01 15:00] VITALS: BP 139/77; PULSE 99; RESP 16; TEMP 37.2; O2SAT 95
--- NOTE | 2022-05-01 15:08 | PM.PNGS ---
Progress Note: A&P Assessment and Plan (1) Chronic cholecystitis with calculus: Code(s): K80.10 - Calculus of gallbladder with chronic cholecystitis without obstruction Status: Acute Assessment and Plan: HIDA scan showed no evidence of cystic duct obstruction. Discussed with patient that she can continue low fat diet and work on improving other factors including her alcohol use. She can follow up as needed in the future. (2) Elevated liver enzymes: Code(s): R74.8 - Abnormal levels of other serum enzymes Status: Acute (3) Heavy alcohol use: Code(s): Z78.9 - Other specified health status Status: Acute (4) BMI 45.0-49.9, adult: Code(s): Z68.42 - Body mass index [BMI] 45.0-49.9, adult Status: Acute (5) Hypokalemia: Code(s): E87.6 - Hypokalemia Status: Acute (6) Hypomagnesemia: Code(s): E83.42 - Hypomagnesemia Status: Acute Subjective Subjective Date/Time Seen: 05/01/22 15:08 Interval history: Pain and nausea improving. Tolerating diet today so far. Exam GI: Inspection: non-distended and obesity GI Palp: Yes Soft to palpation, Yes Tenderness to palpation present (GI) (minimal RUQ) and No Guarding due to palpation present (GI) Percussion: Yes normal to percussion Auscultation: normal bowel sounds Objective Data Vital Signs Vital Signs: Vital Signs - 24 hr 04/30/22 19:59 05/01/22 04:49 05/01/22 08:00 Temperature 36.3 C L 36.2 C L Pulse Rate 88 86 Respiratory Rate 20 20 Blood Pressure 141/79 H 153/94 H 147/84 H Pulse Oximetry 92 95 Oxygen Delivery 05/01/22 08:03 Temperature Pulse Rate Respiratory Rate Blood Pressure Pulse Oximetry Oxygen Delivery Room Air Intake/Output Intake/Output: Intake & Output 04/28/22 04/29/22 04/30/22 05/01/22 23:59 23:59 23:59 23:59 Intake Total 2049 4160 4160 1520 Output Total 1700 800 Balance 2049 2460 3360 1520 Meds/Results Medications: Active Medications Generic Name Dose Route Start Last Admin Trade Name Freq PRN Reason Stop Dose Admin Acetaminophen 650 mg 04/30/22 16:09 Acetaminophen 325 Mg Tablet PO Q6H PRN Mild Pain (1-3) or Fever Hydrocodone Bitart/Acetaminophen 1 tab 04/30/22 16:10 04/30/22 17:50 Hydrocodone/Acetaminophen (*Crx) 5-325 Mg Tablet PO 1 tab Q6H PRN Administration Pain Rated 4-6 Amlodipine Besylate 10 mg 04/29/22 09:00 05/01/22 08:00 Amlodipine Besylate 5 Mg Tablet PO 10 mg DAILY NYLA Administration Enoxaparin Sodium 40 mg 04/30/22 09:00 05/01/22 07:57 Enoxaparin 40 Mg/0.4 Ml Syringe SUB-Q 40 mg DAILY NYLA Administration Folic Acid 1 mg 04/30/22 10:40 05/01/22 07:58 Folic Acid 1 Mg Tablet PO 1 mg DAILY NYLA Administration Hydrochlorothiazide 12.5 mg 04/29/22 09:00 05/01/22 08:00 Hydrochlorothiazide 12.5 Mg Capsule PO 12.5 mg DAILY NYLA Administration Sodium Chloride 1,000 mls @ 100 mls/hr 04/28/22 20:45 05/01/22 14:25 Normal Saline Iv IV CONT 100 mls/hr .Q10H NYLA Administration Ceftriaxone Sodium/Dextrose 1 gm in 50 mls @ 100 mls/hr 04/30/22 14:00 05/01/22 14:19 Rocephin 1 Gm/D5w 50 Ml IVPB 100 mls/hr Q24H NYLA Administration Lorazepam 0.5 mg 04/30/22 10:37 Lorazepam (*Crx) 0.5 Mg Tablet PO Q6H PRN CIWA >8 Ondansetron HCl 4 mg 04/30/22 08:31 04/30/22 08:50 Ondansetron Inj 4 Mg/2 Ml Vial IV PUSH 4 mg Q4H PRN Administration Nausea And Vomiting Thiamine HCl 100 mg 04/30/22 10:40 05/01/22 07:58 Thiamine Hcl 100 Mg Tablet PO 100 mg QAM NYLA Administration Trazodone HCl 100 mg 04/29/22 03:27 04/30/22 22:51 Trazodone Hcl 50 Mg Tablet PO 100 mg PRN PRN Administration Insomnia Radiology Results: ITS Impressions Abdomen/Pelvis CT 04/28/22 20:12 IMPRESSION: 1. Possible gallstones. Consider correlation with ultrasound. 2: Hypodense 1.5 cm mass of the right hepatic lobe not well
[2022-05-01 19:45] VITALS: BP 147/81; PULSE 98; RESP 20; TEMP 36.3; O2SAT 94
[2022-05-01] MEDS: traZODone HCL 50 MG TABLET 100 MG PO (21:37)
[2022-05-02 04:52] VITALS: O2SAT 94
[2022-05-02 04:56] VITALS: BP 125/66; PULSE 95; RESP 20; TEMP 36.5; O2SAT 91
[2022-05-02 05:44] LABS: Hemoglobin 11.2 g/dL (12.0-15.0); Mean Corpuscular HGB Conc 32.9 g/dl (32-36); Mean Corpuscular Hemoglobin 35.2 pg (26-34); Mean Corpuscular Volume 106.9 fl (80-100); Mean Platelet Volume 9.8 fl (7.4-10.4); Platelet Count Result 262 k/mm3 (150-375); Red Blood Count 3.18 M/mm3 (4.2-5.4); Red Cell Distribution Width 19.4 % (11.5-14.5); White Blood Count 10.6 K/mm3 (4.5-10.0)
[2022-05-02 06:00] LABS: Alanine Aminotransferase 31 U/L (6-35); Albumin Level 3.1 g/dL (3.5-5.1); Alkaline Phosphatase 46 U/L (38-126); Anion Gap 0 mmol/L (8-16); Aspartate Amino Transferase 86 U/L (14-36); Bilirubin,Total 0.8 mg/dL (0.2-1.3); Blood Urea Nitrogen 3 mg/dL (7-17); Calcium 7.3 mg/dL (8.4-10.2); Carbon Dioxide 34 mmol/L (22-30); Chloride 100 mmol/L (98-107); Estimated CRCL calculation 116 ml/min; Estimated Glomerular Filt Rate > 60; Glucose 99 mg/dL (65-110); Magnesium 1.7 mg/dL (1.6-2.3); Potassium 3.1 mmol/L (3.4-5.0); Sodium 134 mmol/L (137-145)
[2022-05-02 08:00] VITALS: BP 151/76; PULSE 98; RESP 16
[2022-05-02] MEDS: FOLIC ACID 1 MG TABLET PO (08:01)
[2022-05-02] MEDS: amLODIPine BESYLATE 5 MG TABLET 10 MG PO (08:01)
[2022-05-02] MEDS: ENOXAPARIN 40 MG/0.4 ML SYRINGE SUB-Q (08:01)
[2022-05-02] MEDS: SODIUM CHLORIDE 0.9% IV 1,000 ML 100 ML IV CONT (08:02)
[2022-05-02] MEDS: hydroCHLOROthiazide 12.5 MG CAPSULE PO (08:02)
[2022-05-02] MEDS: MAGNESIUM SULF 2 GM/WATER 50ML 2 GM/50 ML BAG IVPB (08:02)
[2022-05-02] MEDS: THIAMINE HCL 100 MG TABLET PO (08:02)
[2022-05-02] MEDS: POTASSIUM CHLORIDE 20 MEQ TABLET 40 MEQ PO (08:02)
[2022-05-02] MEDS: HYDROcodone/acetaminophen (*CRX) 5-325 MG TABLET 1 TAB PO (08:14)
[2022-05-02 14:00] VITALS: BP 126/76; PULSE 94; RESP 18; TEMP 36.4; O2SAT 97
[2022-05-02 14:58] LABS: Magnesium 1.9 mg/dL (1.6-2.3); Potassium 3.7 mmol/L (3.4-5.0)
--- NOTE | 2022-05-02 15:08 | P.DS_ITS ---
DS: Admitting Diagnosis Discharge Date 05/02/2022 Admitting Diagnosis Nausea and vomiting DS: Discharge Diagnosis Discharge Diagnosis (1) Nausea and vomiting: Code(s): R11.2 - Nausea with vomiting, unspecified Status: Acute Assessment and Plan: Presented with persistent nausea and vomiting ongoing for 2 weeks * Etiology not entirely clear. May have been related to cholelithiasis vs chronic alcohol abuse * Workup not consistent with acute cholecystitis * She was rehydrated with IV fluids and was able to tolerate appropriate oral intake * She was able to tolerate a low-fat diet (2) Cholelithiasis: Code(s): K80.20 - Calculus of gallbladder without cholecystitis without obstruction Status: Acute Assessment and Plan: CT abdomen/pelvis showed possible gallstones * Right upper quadrant ultrasound revealed gallstones with gallbladder wall thickening and positive sonographic Hawkins sign * HIDA scan completed which did not show evidence of acute cholecystitis * She was seen in consultation by General surgery * She was able to tolerate a low-fat diet which she will continue * She can follow-up with General surgery as an outpatient should any issues arise (3) Heavy alcohol use: Code(s): Z78.9 - Other specified health status Status: Acute Assessment and Plan: Patient reports drinking a fifth of liquor per day for 5 years * She had no symptoms of alcohol withdrawal. CIWA protocol was implemented and scores ranged from 0-1 * Begin thiamine and folic acid daily * Educated regarding alcohol cessation. Patient states she drinks every night to help her fall asleep. Discussed alternative measures for appropriate sleep hygiene. Patient will benefit from outpatient rehab. (4) Hypokalemia: Code(s): E87.6 - Hypokalemia Status: Acute Assessment and Plan: Likely secondary to nausea/vomiting and poor PO intake * Potassium was monitored and supplemented. * Potassium 3.7 at time of discharge. * Will begin 20 mEq PO KCl supplement daily. * Repeat potassium level in 1 week and follow up with PCP (5) Hypomagnesemia: Code(s): E83.42 - Hypomagnesemia Status: Acute Assessment and Plan: Likely secondary to nausea/vomiting * Magnesium 1.9 at time of discharge * Begin magnesium oxide 400 mg daily * Repeat magnesium levels in 1 week with results to PCP (6) Transaminitis: Code(s): R74.01 - Elevation of levels of liver transaminase levels Status: Acute Assessment and Plan: LFTs were mildly elevated on presentation. * May be due to chronic alcohol abuse * No evidence of biliary obstruction or ductal dilation on imaging * LFTs with overall improvement during admission. ALT normalized. (7) Abnormal CT of liver: Code(s): R93.2 - Abnormal findings on diagnostic imaging of liver and biliary tract Status: Acute Assessment and Plan: CT of abdomen/pelvis showed hypodense 1.5 cm mass of right hepatic lobe * Follow up ultrasound did not appreciate hypodense mass. Hepatic steatosis identified. Recommend dietary and lifestyle change. * HIDA scan also showed delayed clearance of radiotracer from blood pool consistent with hepatocellular dysfunction * Follow up with PCP (8) UTI (urinary tract infection): Code(s): N39.0 - Urinary tract infection, site not specified Status: Acute Assessment and Plan: UA abnormal on presentation * Urine culture with growth of >100k Klebsiella pneumoniae
--- NOTE | 2022-05-02 15:08 | PM.DS ---
DS: Admitting Diagnosis Discharge Date 05/02/2022 Admitting Diagnosis Nausea and vomiting DS: Discharge Diagnosis Discharge Diagnosis (1) Nausea and vomiting: Code(s): R11.2 - Nausea with vomiting, unspecified Status: Acute Assessment and Plan: Presented with persistent nausea and vomiting ongoing for 2 weeks Etiology not entirely clear. May have been related to cholelithiasis vs chronic alcohol abuse Workup not consistent with acute cholecystitis She was rehydrated with IV fluids and was able to tolerate appropriate oral intake She was able to tolerate a low-fat diet (2) Cholelithiasis: Code(s): K80.20 - Calculus of gallbladder without cholecystitis without obstruction Status: Acute Assessment and Plan: CT abdomen/pelvis showed possible gallstones Right upper quadrant ultrasound revealed gallstones with gallbladder wall thickening and positive sonographic Hawkins sign HIDA scan completed which did not show evidence of acute cholecystitis She was seen in consultation by General surgery She was able to tolerate a low-fat diet which she will continue She can follow-up with General surgery as an outpatient should any issues arise (3) Heavy alcohol use: Code(s): Z78.9 - Other specified health status Status: Acute Assessment and Plan: Patient reports drinking a fifth of liquor per day for 5 years She had no symptoms of alcohol withdrawal. CIWA protocol was implemented and scores ranged from 0-1 Begin thiamine and folic acid daily Educated regarding alcohol cessation. Patient states she drinks every night to help her fall asleep. Discussed alternative measures for appropriate sleep hygiene. Patient will benefit from outpatient rehab. (4) Hypokalemia: Code(s): E87.6 - Hypokalemia Status: Acute Assessment and Plan: Likely secondary to nausea/vomiting and poor PO intake Potassium was monitored and supplemented. Potassium 3.7 at time of discharge. Will begin 20 mEq PO KCl supplement daily. Repeat potassium level in 1 week and follow up with PCP (5) Hypomagnesemia: Code(s): E83.42 - Hypomagnesemia Status: Acute Assessment and Plan: Likely secondary to nausea/vomiting Magnesium 1.9 at time of discharge Begin magnesium oxide 400 mg daily Repeat magnesium levels in 1 week with results to PCP (6) Transaminitis: Code(s): R74.01 - Elevation of levels of liver transaminase levels Status: Acute Assessment and Plan: LFTs were mildly elevated on presentation. May be due to chronic alcohol abuse No evidence of biliary obstruction or ductal dilation on imaging LFTs with overall improvement during admission. ALT normalized. (7) Abnormal CT of liver: Code(s): R93.2 - Abnormal findings on diagnostic imaging of liver and biliary tract Status: Acute Assessment and Plan: CT of abdomen/pelvis showed hypodense 1.5 cm mass of right hepatic lobe Follow up ultrasound did not appreciate hypodense mass. Hepatic steatosis identified. Recommend dietary and lifestyle change. HIDA scan also showed delayed clearance of radiotracer from blood pool consistent with hepatocellular dysfunction Follow up with PCP (8) UTI (urinary tract infection): Code(s): N39.0 - Urinary tract infection, site not specified Status: Acute Assessment and Plan: UA abnormal on presentation Urine culture with growth of >100k Klebsiella pneumoniae Received IV Rocephin Continue PO Cefdinir outpatient to complete 7 total days of antibiotic therapy (9) Hypertension: Code(s): I10 - Essential (primary) hypertension Status: Acute Assessment and Plan: Blood pressure reviewed and remained stable. Continue amlodipine and hydrochlorothiazide DS: Summary Hospital Course Hospital Course: Date of admission 04/28/2022 Date of discharge 05/02/2022 Opal Godinez
== END 2022-05-02 18:12 | disposition home or self-care (01) ==
LOC: ANHED 16:27 → ANH2MED 21:08
PROVIDERS: Physician Assistant; Surgery; Admitting Provider Student in an Organized Health Care Education/Training Program; Emergency Provider Emergency Medicine; PCP Physician Assistant; Visit Provider Internal Medicine
DX: K80.10 Calculus of gallbladder with chronic cholecystitis without obstruction (principal); I10 Essential (primary) hypertension; E87.6 Hypokalemia; E83.42 Hypomagnesemia; F10.10 Alcohol abuse, uncomplicated; Z68.42 Body mass index [BMI] 45.0-49.9, adult; E66.9 Obesity, unspecified; N39.0 Urinary tract infection, site not specified; R74.01 Elevation of levels of liver transaminase levels; B96.1 Klebsiella pneumoniae [K. pneumoniae] as the cause of diseases classified elsewhere; Z79.899 Other long term (current) drug therapy
CPT/HCPCS: 36415; 74176; 76705; 78226; 80048; 80053; 81001; 81025; 83690; 83735; 84100; 84132; 85025; 85027; 85610; 85730; 87077; 87086; 87186; 93005; 96361; 96365; 96372; 96374; 96375; 96376; 99285; A9270; A9537; G0378; G0379; J0131; J0696; J1200; J1650; J2405; J2765; J3475; J3480; J7030; J7040

== ENCOUNTER 2022-11-29 17:03 | Emergency (ER) | payer OTHER, SELFPAY ==
--- NOTE | ~2022-11-29 | XR_ITS ---
EXAMINATION: XR foot LT 2V DATE: 11/29/2022 17:45 INDICATION: Left foot injury and pain. TECHNIQUE: 2 views of left foot were obtained. COMPARISON: None. FINDINGS: There is mild hallux valgus. No fracture. There is mild osteoarthritis of first metatarsoph alangeal joint and fifth proximal interphalangeal joint. There is an enthesophyte at posterior aspect of calcaneal tuberosity. IMPRESSION: 1. Mild hallux valgus. 2. Mild polyarticular osteoarthritis. Reviewed, dictated and finalized at location A. [facility]
[2022-11-29 17:19] VITALS: BP 142/88; PULSE 92; RESP 16; TEMP 36.9; O2SAT 100
--- NOTE | 2022-11-29 18:22 | ED.LOWEXIN ---
HPI - Extremity Injury (Lower) General Chief Complaint: Extremity Injury, Lower Stated Complaint: L FOOT PAIN S/P INJURY Time Seen by Provider: 11/29/22 18:19 History of Present Illness HPI Narrative: 47-year-old female history of hypertension presents to the emergency room for evaluation of left foot pain for 1 week after dropping a can of corn on the. Patient states the cam fell on the outside of her foot, toward the base of the fifth toe. Patient states the following day she began experiencing pain to the base of her great toe. Also endorses swelling and warmth to the base of the great toe. Pain is worse with ambulation. Related Data Home Medications Medication Instructions Recorded Confirmed amlodipine 10 mg tablet 1 tablet PO DAILY 04/28/22 04/28/22 hydrochlorothiazide 12.5 mg capsule 1 cap PO DAILY 04/28/22 04/28/22 trazodone 100 mg tablet 1 tablet PO PRN PRN Insomnia 04/28/22 04/28/22 Allergies Allergy/AdvReac Type Severity Reaction Status Date / Time No Known Allergies Allergy Unknown Verified 04/28/22 22:03 Review of Systems Review of Systems: CONSTITUTIONAL: Denies fever, chills, or sweats. EYES: Denies visual changes, redness, or discharge. ENT: Denies rhinorrhea, congestion, sore throat, or otalgia. CARDIOVASCULAR: Denies chest pain, palpitations, or edema. RESPIRATORY: Denies cough or dyspnea. GASTROINTESTINAL: Denies abdominal pain, nausea, vomiting, or diarrhea. GENITOURINARY: Denies dysuria or hematuria. SKIN: Denies rash or itching. MUSCULOSKELETAL: Reports left foot pain NEUROLOGIC: Denies headache, numbness, dizziness, or weakness. PSYCHIATRIC: Denies anxiety or depression. [facility] Past Medical History Medical History Hypertension Surgical History Surgical History History of tubal ligation Family History Family History Other Unknown family medical history Social History Social History Smoking status: Never smoker Alcohol intake: current Drinks per week: 7 Substance use: never Substance use type: does not use Other substance usage details: pt drinks 1/5 of mandy or whiskey per day since she was 42 Last use: 04/25/22 Spiritual care concerns: No Exam Narrative: GENERAL: Well-appearing, well-nourished, no physical limitations, and in no acute distress. HEAD: Normocephalic, atraumatic. EYES: Conjunctivae normal, PERRLA and EOMI. CHEST: Clear to auscultation. No respiratory distress. No wheezes rales or rhonchi. HEART: Regular rate and rhythm. No murmur heard. Normal peripheral pulses. EXTREMITIES: Left foot: Swelling and tenderness extending from the base of the fifth toe to the base of the first toe. No swelling, erythema and limited range of motion to the first MTP joint. Neurovascular is intact distally SKIN: Warm, dry, no rash. No noted wounds NEURO: No focal deficits. Alert and oriented x3. MAEW. CN's II-XI intact bilaterally, normal gait PSYCH: Cooperative. Normal mood and affect. Course Vital Signs Vital signs: Vital Signs Temperature 36.9 C 11/29/22 17:19 Pulse Rate 92 11/29/22 17:19 Respiratory Rate 16 11/29/22 17:19 Blood Pressure 142/88 H 11/29/22 17:19 Pulse Oximetry 100 11/29/22 17:19 Oxygen Delivery Room Air 11/29/22 17:19 Temperature 36.9 C 11/29/22 17:19 Pulse Rate 92 11/29/22 17:19 Respiratory Rate 16 11/29/22 17:19 Blood Pressure 142/88 H 11/29/22 17:19 Pulse Oximetry 100 11/29/22 17:19 Oxygen Delivery Room Air 11/29/22 17:19 Discharge Plan Discharge Clinical Impression: Contusion of great toe of left foot, Gout Patient Disposition: Home, Self-Care Condition: Stable Instructions: Gout (ED), Foot Contusion (ED) Prescriptions: New indomethacin 50 mg capsule
== END 2022-11-29 19:23 | disposition home or self-care (01) ==
PROVIDERS: Emergency Provider Nurse Practitioner Family; PCP Physician Assistant
DX: S90.112A Contusion of left great toe without damage to nail, initial encounter (principal); I10 Essential (primary) hypertension; W20.8XXA Other cause of strike by thrown, projected or falling object, initial encounter
CPT/HCPCS: 73620; 96372; 99283; J1100

== ENCOUNTER 2024-05-03 15:12 | Observation (INO) | payer MEDICAID, SELFPAY ==
[2024-05-03] VITALS (11 sets, daily range): BP systolic 126–173; BP diastolic 81–103; PULSE 87–101; RESP 15–20; TEMP 36.6–36.9; O2SAT 94–100; BMI 48.0
--- NOTE | ~2024-05-03 | XR_ITS ---
EXAMINATION: XR chest 1V portable DATE: 05/03/2024 16:06 INDICATION: Cough. TECHNIQUE: A single frontal view of the chest was obtained. COMPARISON: Chest 2 views 09/24/2019 FINDINGS: There is no pneumonia, pleural effusion, or pneumothorax. The heart size is normal. IMPRESSION: 1. No acute cardiopulmonary disease. Reviewed, dictated and finalized at location E.
--- NOTE | ~2024-05-03 | MR_ITS ---
EXAMINATION: MR MRCP wo/w con/w 3D wo ind DATE: 05/04/2024 13:15 INDICATION: Cholelithiasis. TECHNIQUE: Magnetic resonance imaging (MRI) of the abdomen was performed without and with 20 mL Multi Ton intravenous contrast. Sequences included coronal T2-weighted FS FSE, coronal T2-weighted FSE, a xial T1-weighted LAVA, coronal FS FIESTA, axial dual-echo T1-weighted SPGR, coronal lava-FLEX, sagitt al T2-weighted FSE, axial T2-weighted FSE, and axial DWI. Thick-slab T2-weighted FSE images were obta ined for magnetic resonance cholangiopancreatography (MRCP). Maximum intensity projection 3-D reconst ructions of the volumetric data were created by the technologist. Postcontrast sequences included cor onal LAVA-flex and time course of axial T1-weighted LAVA. COMPARISON: CT abdomen and pelvis 05/03/2024, abdomen ultrasound 05/04/2024 FINDINGS: ABDOMEN MRI: There is diffuse hepatic steatosis. The spleen is normal. The gallbladder is distended a nd contains gallstones. The pancreas, adrenal glands, and kidneys are normal. There are no dilated lo ops of bowel. There are no pathologically enlarged lymph nodes. There is no free intraperitoneal flui d. ABDOMEN MRCP: The common duct is normal and measures 4 mm. No choledocholithiasis. IMPRESSION: 1. Distended gallbladder with gallstones suspicious for acute cholecystitis. 2. No choledocholithiasis. 3. Diffuse hepatic steatosis. Reviewed, dictated and finalized at location A.
--- NOTE | ~2024-05-03 | US_ITS ---
EXAMINATION: US right upper quadrant DATE: 05/04/2024 13:27 INDICATION: Cholelithiasis. TECHNIQUE: Multiple grayscale and Doppler ultrasound images of the abdomen were obtained. COMPARISON: MRCP dated 05/04/2024 FINDINGS: The visualized portions of the head, body, and tail of the pancreas are normal. There is di ffuse hepatic steatosis. There is normal flow in main portal vein. The gallbladder is distended and c ontains gallstones. No gallbladder wall thickening. There is a positive sonographic Hawkins's sign. Th e common duct is normal and measures 5 mm. IMPRESSION: 1. Distended gallbladder with gallstones and positive sonographic Hawkins's sign suspicious for acute cholecystitis. 2. Diffuse hepatic steatosis. Reviewed, dictated and finalized at location A.
--- NOTE | ~2024-05-03 | NM_ITS ---
EXAMINATION: NM hepatobiliary wo pharm DATE: 05/05/2024 13:26 INDICATION: Cholelithiasis. COMPARISON: CT abdomen and pelvis 05/04/2024 TECHNIQUE: 4.3 mCi Tc-99m mebrofenin (Choletec) was administered intravenously. Scintigraphic images of the abdomen were obtained for one hour and 10 minutes. FINDINGS: There is normal clearance of radiotracer from the blood pool. There is homogeneous tracer u ptake by the liver. Activity progresses to the bowel and gallbladder. IMPRESSION: 1. Patent cystic duct and common duct. Reviewed, dictated and finalized at location A.
--- NOTE | ~2024-05-03 | CT_ITS ---
EXAMINATION: CT abdomen pelvis w con DATE: 05/03/2024 16:48 INDICATION: Nausea and vomiting and diarrhea. Abnormal liver function tests. TECHNIQUE: Computed tomography (CT) of the abdomen and pelvis was performed with 100 mL Omnipaque 350 intravenous contrast. Automated exposure control and iterative reconstruction technique were employe d. The dose-length product was 1490.16 mGy-cm. COMPARISON: CT abdomen and pelvis 04/28/2022 FINDINGS: The visualized portions of the lung bases demonstrate mild atelectasis. No pleural effusion . The heart size is normal. No pericardial effusion. There are coronary artery calcifications. The li raymond is normal. There are gallstones in the gallbladder, which is distended. The spleen, pancreas, adr enal glands are normal. There is cortical thinning of the kidneys. There is a 6.9 cm pedunculated milka rine fibroid. There are no dilated loops of bowel. The appendix is normal. There are no pathologicall y enlarged lymph nodes. There is no free intraperitoneal fluid. There is mild thoracic and lumbar spo ndylosis. IMPRESSION: 1. Cholelithiasis. Gallbladder distention may be secondary to fasting or acute cholecystitis. Correl ate with physical exam. 2. Uterine fibroid. Reviewed, dictated and finalized at location E. IMPRESSION: 1. Cholelithiasis. Gallbladder distention may be secondary to fasting or acute cholecystitis. Correlate with physical exam. 2. Uterine fibroid.
--- NOTE | 2024-05-03 15:33 | ECG_ITS ---
[facility] [address] Test Date: 2024-05-03 Pat Name: Opal Godinez Department: Room: Gender: F Vp Scientific Affairs: : 1975 Requested By: Elvira Vidal Order Number: [id number] Reggie MD: Dominic Estrada M.D. Measurements Intervals [place] Rate: 96 P: 0 W[place]: 0 QRS: -31 QRSD: 84 T: 92 QT: 365 QTc: 461 Interpretive Statements SINUS RHYTHM WITH FREQUENT PACS POOR R-WAVE PROGRESSION INFERIOR MYOCARDIAL INFARCTION , OF INDETERMINATE AGE [40+ ms Q WAVE AND/OR ST/T ABNORMALITY IN II/aVF] ABNORMAL ECG No previous ECG available for comparison Electronically Signed On 05-04-2024 07:20:50 CDT by Dominic Estrada M.D.
--- NOTE | 2024-05-03 15:39 | ED.URI ---
HPI - URI/Sore Throat General Chief Complaint: Dizziness Stated Complaint: lightheaded/chills Time Seen by Provider: 05/03/24 15:32 History of Present Illness HPI Narrative: Patient reports a few days of chills, cough, nausea and vomiting and diarrhea, and feeling slightly lightheaded. Also reports body aches all over. Related Data Home Medications Medication Instructions Recorded Confirmed amlodipine 10 mg tablet 1 tablet PO DAILY 04/28/22 04/28/22 hydrochlorothiazide 12.5 mg capsule 1 cap PO DAILY 04/28/22 04/28/22 trazodone 100 mg tablet 1 tablet PO PRN PRN Insomnia 04/28/22 04/28/22 Allergies Allergy/AdvReac Type Severity Reaction Status Date / Time No Known Allergies Allergy Unknown Verified 05/03/24 15:49 Review of Systems Review of Systems: All systems reviewed & are unremarkable except as noted in HPI and below PMFSH Past Medical History Medical History Hypertension Surgical History Surgical History History of tubal ligation Family History Family History Other Unknown family medical history Social History Social History Smoking status: Never smoker Alcohol intake: current Drinks per week: 7 Substance use: never Substance use type: does not use Other substance usage details: pt drinks 1/5 of mandy or whiskey per day since she was 42 Last use: 04/25/22 Spiritual care concerns: No Exam Narrative: EXAMINATION OF ORGAN SYSTEMS/BODY AREAS: Constitutional: Vital signs per nursing GENERAL:[No acute distress, non-toxic appearing.] Appears tired HEAD: Normal with no signs of head trauma. EYES: EOMI, conjunctiva normal ENT: Hearing grossly intact LUNGS: Nonlabored breathing. CTAB HEART: [Regular rate and rhythm] ABD: [Soft], [nontender to palpation] EXT: Normal range of motion SKIN: [No rashes or lesions.] NEURO: [Alert and oriented x 3. No gross focal sensory or strength deficits.] PSYCH: Normal affect Course Vital Signs Vital signs: Vital Signs Temperature 98.4 F 05/03/24 15:25 Pulse Rate 96 05/03/24 15:25 Respiratory Rate 20 05/03/24 15:25 Blood Pressure 173/103 H 05/03/24 15:25 Pulse Oximetry 96 05/03/24 15:25 Oxygen Delivery Room Air 05/03/24 15:25 Temperature 98.4 F 05/03/24 15:25 Pulse Rate 96 05/03/24 15:25 Respiratory Rate 20 05/03/24 15:25 Blood Pressure 173/103 H 05/03/24 15:25 Pulse Oximetry 96 05/03/24 15:25 Oxygen Delivery Room Air 05/03/24 15:25 MDM - URI/Sore Throat MDM Narrative Medical decision making narrative: 48-year-old female presenting with URI symptoms, EKG obtained on my independent interpretation does show atrial fibrillation with rate 96, no ST elevations depressions, I did discuss this with the patient she has not had a prior diagnosis of atrial fibrillation in the past, I did discuss with the patient that she is at higher risk for blood clots including strokes an ME and her chads Vasc score is 2, indicating that anticoagulation should be considered, I discussed this with the patient with risks and benefits of starting anticoagulation at this time, she would like to wait until she sees her primary care doctor or wire products inspector which I feel is reasonable. labs concerning for potassium of 2.4. I have started repleting her in the ER however this combined with the new diagnosis of atrial fibrillation I do feel she would benefit from admission for further workup and treatment at this time. Patient agreeable to this. Discussed with hospitalist for admission. Lab Data 05/03/24 16:02 05/03/24 16:02 Labs: Lab Results 05/03/24 Range/Units 16:02 WBC 11.3 H (4.5-10.0) K/mm3 RBC 3.74 L (4.2-5.4) M/mm3 Hgb 13.9 (12.0-15.0) g/dL H
[2024-05-03] MEDS: LACTATED RINGERS 1,000 ML 999 ML IV CONT (16:03)
[2024-05-03] MEDS: PROCHLORPERAZINE EDISYLATE 10 MG/2 ML VIAL IV PUSH (16:03)
[2024-05-03] MEDS: diphenhydrAMINE HCl INJ 50 MG/ML VIAL 25 MG IV PUSH (16:03)
[2024-05-03 16:08] LABS: Basophils Absolute Auto 0.1 K/mm3 (0.0-0.1); Eosinophils Percent Auto 0.1 % (0-4.4); Hematocrit 39.2 % (37.0-47.0); Hemoglobin 13.9 g/dL (12.0-15.0); Immature Granulocyte Absolute 0.07 K/mm3 (0.00-0.031); Immature Granulocyte Percent A 0.6 % (0-0.5); Lymphocytes Absolute Auto 1.26 K/mm3 (0.9-3.2); Lymphocytes Percent Auto 11.2 % (18.3-44.2); Mean Corpuscular HGB Conc 35.5 g/dl (32-36); Mean Corpuscular Hemoglobin 37.2 pg (26-34); Mean Corpuscular Volume 104.8 fl (80-100); Mean Platelet Volume 9.8 fl (7.4-10.4); Monocytes Percent Auto 8.8 % (2.6-8.5); Neutrophils Absolute Auto 8.9 K/mm3 (1.3-6.7); Neutrophils Percent Auto 78.3 % (45.5-73.1); Nucleated Red Blood Cells Perc 0.3 % (0.0-0.2); Platelet Count Result 246 k/mm3 (150-375); Red Blood Count 3.74 M/mm3 (4.2-5.4); Red Cell Distribution Width 19.9 % (11.5-14.5); White Blood Count 11.3 K/mm3 (4.5-10.0)
[2024-05-03 16:19] LABS: INR 1.1; Prothrombin Time 14.3 Seconds (11.1-14.7)
[2024-05-03 16:20] LABS: Partial Thromboplastin Time 25.4 Seconds (22.3-36.8)
[2024-05-03 16:22] LABS: Alanine Aminotransferase 49 U/L (6-35); Albumin Level 4.5 g/dL (3.5-5.1); Alkaline Phosphatase 59 U/L (38-126); Anion Gap 11 mmol/L (4-12); Aspartate Amino Transferase 121 U/L (14-36); Bilirubin,Total 2.2 mg/dL (0.2-1.3); Blood Urea Nitrogen 10 mg/dL (7-17); Calcium 8.5 mg/dL (8.4-10.2); Carbon Dioxide 38 mmol/L (22-30); Chloride 86 mmol/L (98-107); Estimated CRCL calculation 82 ml/min; Estimated Glomerular Filt Rate > 60; Glucose 115 mg/dL (65-110); Potassium 2.4 mmol/L (3.4-5.0); Sodium 135 mmol/L (137-145)
[2024-05-03 16:31] LABS: Troponin I 0.014 ng/mL (0.000-0.034)
[2024-05-03 16:43] LABS: Influenza A QL RT-PCR Negative (Negative); Influenza B QL RT-PCR Negative (Negative); RSV RNA, RT-PCR Negative (Negative); SARS-CoV-2 RNA PCR Negative (Negative)
[2024-05-03 17:03] LABS: Magnesium 1.3 mg/dL (1.6-2.3)
[2024-05-03] MEDS: POTASSIUM CHLORIDE INJ 40 MEQ in SODIUM CHLORIDE 0.9% IV 500 ML 130 MEQ IVPB (17:05)
[2024-05-03] MEDS: LOPERAMIDE HCL 2 MG CAPSULE 4 MG PO (17:07)
[2024-05-03] MEDS: POTASSIUM CHLORIDE 20 MEQ PACKET (FOR LIQUID) 40 MEQ PO (17:20)
--- NOTE | 2024-05-03 17:25 | PM.IMHP ---
H&P: HPI History of Present Illness Date/Time: 05/03/24 19:25 Chief Complaint: Multiple complaints. Narrative: This is a 48-year-old female with history of hypertension and alcohol abuse who presented to the emergency department via private vehicle for evaluation of multiple complaints. The patient provides the following history. She has not been feeling well for several days with symptoms to include chills, lightheadedness, body aches, occasional nonproductive cough, nausea, vomiting, diarrhea, and mild dysuria. With further questioning she reports an increase in GERD symptoms recently and her abdomen feels bloated. She has not had alcohol for 2 days due to her symptoms and she feels a little anxious with sweats and goose bumps as well. She denies hematemesis, melena, and hematochezia. She has no known sick contacts. She also denies headache, sinus congestion, sore throat, chest pain, pleuritic pain, palpitations, sensations of racing heart, and abdominal pain. She has never had any significant alcohol withdrawal symptoms. No history of peptic ulcers or pancreatitis. In the ED: Blood pressure was 173/103 on arrival. She has been afebrile the rest of her vital signs are stable. Labs were significant for a WBC count of 11.3, hemoglobin 13.9, MCV 104.8, platelet 246, INR 1.1, sodium 135, potassium 2.4, chloride 86, carbon dioxide 38, BUN 10, creatinine 1.00, glucose 115, total bilirubin 2.2, AST 121, ALT 49, alkaline phosphatase 54. She tested negative for influenza, RSV, and COVID. Chest x-ray showed no acute cardiopulmonary disease. CT of the abdomen and pelvis showed cholelithiasis and gallbladder distension which may be due to fasting or acute cholecystitis and a fairly large uterine fibroid. She received 1 L LR bolus, 40 mEq IV potassium, 2 g IV magnesium, 40 mg IV pantoprazole, and 10 mg IV prochlorperazine. She is being admitted in this setting for further treatment and evaluation. Review of Systems Review of Systems: 12 systems were reviewed and are negative except for as per HPI. [facility] Past Medical History Medical History (Updated 05/03/24 @ 23:03 by Dixie Phelps PA-C) Alcohol abuse Hypertension Surgical History Surgical History (Updated 05/03/24 @ 22:59 by Dixie Phelps PA-C) History of tonsillectomy History of tubal ligation Family History Family History Mother Diabetes mellitus Other Unknown family medical history Social History Social History (Updated 05/03/24 @ 23:00 by Dixie Phelps PA-C) Social History: Surrogate medical decision maker: Josselin Forrest, mother. Code status: Full code. Smoking status: Never smoker Second hand tobacco smoke exposure: Yes Alcohol intake: current Drinks per week: 49 Alcohol use details: Drinks a 5th of whiskey a day. Substance use: current Substance use type: marijuana Do You Feel Safe in your Home?: Yes Lack of Transportation: No Lack of Food: Never True Current Housing: I Have Housing Concerned About Future Housing: YES Difficulty Paying Gas/Electric Bills: No Difficulty Paying for Meds: No Currently Unemployed: YES Education: High School Diploma/GED Difficulty w/ Childcare or Family Care: YES Additional living arrangements comments: Lives in [place] with a friend. Spiritual care concerns: No Meds Home Medications and Allergies Home Medications Medication Instructions Recorded Confirmed Type amlodipine 10 mg tablet 1 tablet PO DAILY 04/28/22 05/03/24 History hydrochlorothiazide 12.5 mg capsule 1 cap PO DAILY 04/28/22 05/03/24 History trazodone 100 mg tablet 1 tablet PO PRN PRN Insomnia 04/28/22 05/03/24 History Allergies Allergy/AdvReac Type Severity Reaction Status Date / Time No Known Allergies Allergy Unknown Verified 05/03/24 15:49 Vital Signs Vital Signs - 24 hr 05/03/24 15:25 05/03/24 16:15 05/03/24 16:31 Temperature 98.4
--- NOTE | 2024-05-03 18:00 | ADMGEN ---
This patient, Opal Godinez, was admitted to 2 Medical Room 257-01. Patient/family oriented to hospital policies and general routines including ID bracelet, bed and alarms, visiting hours, pain management, procedures, bathroom and other care routines, personal items, smoking policy, room service/diet, and visiting hours. Information on how to activate the Rapid Response Team has been discussed. Patient/Family are encouraged to report perceived risks to care and to ask questions if they do not understand what they are told or what they should do. report received from Ginger CHEN
[2024-05-03] MEDS: SODIUM CHLORIDE 0.9% IV 1,000 ML 125 ML IV CONT (19:03)
[2024-05-03] MEDS: PANTOPRAZOLE SODIUM IV 40 MG VIAL IV PUSH (20:22)
[2024-05-03 20:47] LABS: Appearance Urine Cloudy (Clear); Bacteria Urine 4+ /hpf; Bilirubin Urine Negative (Negative); Blood Urine Trace (Negative); Color Urine Dark Yellow (Yellow); Glucose Urine UA Negative (Negative); Ketones Urine Trace mg/dL (Negative); Leukocyte Esterase Ur 1+ LEU/UL (Negative); Need Manual Microscopic Reviewed; Nitrate Urine Positive (Negative); Non Pathogenic Casts 0-2; Protein Urine Trace mg/dL (Negative); RBC Urine 0-2 /hpf (0-2); Squamous Epithelial Cell Urine Moderate /hpf (Few); pH Urine 6.5 (5.0-9.0)
[2024-05-03 20:54] LABS: Specific Grav Ur <= 1.005 (1.001-1.035)
[2024-05-03 20:55] LABS: Add Urine Microscopic? YES
[2024-05-03 21:11] LABS: Glucose Point of Care 111 mg/dl (65-105)
[2024-05-03] MEDS: MAGNESIUM SULF 2 GM/WATER 50ML 2 GM/50 ML BAG IVPB (21:25)
[2024-05-03 23:48] LABS: Anion Gap 8 mmol/L (4-12); Blood Urea Nitrogen 9 mg/dL (7-17); Calcium 8.2 mg/dL (8.4-10.2); Carbon Dioxide 34 mmol/L (22-30); Chloride 92 mmol/L (98-107); Estimated CRCL calculation 82 ml/min; Estimated Glomerular Filt Rate > 60; Glucose 105 mg/dL (65-110); Magnesium 1.8 mg/dL (1.6-2.3); Potassium 2.7 mmol/L (3.4-5.0); Sodium 134 mmol/L (137-145)
[2024-05-04] VITALS (12 sets, daily range): BP systolic 150–156; BP diastolic 80–96; PULSE 79–103; RESP 16–18; TEMP 36.4–36.9; O2SAT 98
[2024-05-04] MEDS: POTASSIUM CHLORIDE 20 MEQ PACKET (FOR LIQUID) 40 MEQ PO (00:04)
[2024-05-04] MEDS: POTASSIUM CHLORIDE INJ 40 MEQ in SODIUM CHLORIDE 0.9% IV 500 ML 130 MEQ IVPB (00:53)
[2024-05-04 05:30] LABS: Hematocrit 34.2 % (37.0-47.0); Hemoglobin 11.8 g/dL (12.0-15.0); Mean Corpuscular HGB Conc 34.5 g/dl (32-36); Mean Corpuscular Hemoglobin 37.3 pg (26-34); Mean Corpuscular Volume 108.2 fl (80-100); Mean Platelet Volume 10.3 fl (7.4-10.4); Platelet Count Result 229 k/mm3 (150-375); Red Blood Count 3.16 M/mm3 (4.2-5.4); White Blood Count 10.8 K/mm3 (4.5-10.0)
[2024-05-04 05:46] LABS: Anion Gap 5 mmol/L (4-12); Blood Urea Nitrogen 9 mg/dL (7-17); Calcium 7.6 mg/dL (8.4-10.2); Carbon Dioxide 34 mmol/L (22-30); Chloride 95 mmol/L (98-107); Estimated CRCL calculation 91 ml/min; Estimated Glomerular Filt Rate > 60; Glucose 102 mg/dL (65-110); Potassium 3.2 mmol/L (3.4-5.0); Sodium 134 mmol/L (137-145)
[2024-05-04 07:27] LABS: Alanine Aminotransferase 37 U/L (6-35); Aspartate Amino Transferase 87 U/L (14-36); Bilirubin,Total 1.5 mg/dL (0.2-1.3); Triglycerides 97 mg/dL (<150)
--- NOTE | 2024-05-04 07:56 | PM.IMPN ---
Progress Note: A&P Assessment and Plan (1) Urinary tract infection: Code(s): N39.0 - Urinary tract infection, site not specified Status: Acute Assessment and Plan: - UA: cloudy, trace ketones, positive nitrates, 2.0 urobili, 1+ leukocytes, 11-20 WBC, 4+ bacteria. Possible contaminate as there are moderate squamous cells noted. However patient complains of dysuria so will treat pending culture results. - UC obtained on 05/03/24: pending - previous micro reviewed 04/28/22: Klebsiella pneumoniae with resistance to ampicillin - started on Rocephin 05/03/24 (2) Cholelithiasis: Code(s): K80.20 - Calculus of gallbladder without cholecystitis without obstruction Status: Acute Assessment and Plan: - CT abdomen/pelvis: Cholelithiasis. Gallbladder distention may be secondary to fasting or acute cholecystitis. Correlate with physical exam. - RUQ US Distended gallbladder with gallstones and positive sonographic Hawkins's sign suspicious for acute cholecystitis. Diffuse hepatic steatosis. - MRCP Distended gallbladder with gallstones suspicious for acute cholecystitis. No choledocholithiasis. Diffuse hepatic steatosis. - GI consulted for concern of cholecystitis - Antibiotics: Rocephin and Flagyl - Monitor vital signs, I and O's, check stool output, neuro status and patient is a fall risk - Monitor serum electrolytes and CBC - Analgesics - Gentle IV fluid resuscitation (3) Transaminitis: Code(s): R74.01 - Elevation of levels of liver transaminase levels Status: Acute Assessment and Plan: On admission LFTs elevated with tot bili 2.2, AST 121, ALT 49. On prior admissions tot bili WNL and AST/ALT slightly elevated. Likely related to patients alcohol abuse since the alk phos WNL and tot bili only slightly elevated, however there was cholelithiasis seen on CT which could be a contributory factor. - Continue to monitor with daily labs - RUQ US: Distended gallbladder with gallstones and positive sonographic Hawkins's sign suspicious for acute cholecystitis. Diffuse hepatic steatosis. - MRCP: No choledocholithiasis. Distended gallbladder with gallstones suspicious for acute cholecystitis. Diffuse hepatic steatosis. - Hepatitis negative (4) Hypokalemia: Code(s): E87.6 - Hypokalemia Status: Acute Assessment and Plan: K 2.4 on admission, patient received 40 meq IVPB and 40 meq PO in the ED. - K 3.2 on am labs, repleted - Continue to monitor with daily labs (5) Hypomagnesemia: Code(s): E83.42 - Hypomagnesemia Status: Acute Assessment and Plan: Mg 1.3 on admission, patient received 2 gm IVPB in the ED. - Mg 1.8 on am labs - Continue to monitor with daily labs (6) Hypertension: Code(s): I10 - Essential (primary) hypertension Status: Acute Assessment and Plan: Chronic, remains slightly elevated. - Continue amlodipine - Holding HCTZ due to electrolyte abnormalities - Monitor (7) Alcohol abuse: Code(s): F10.10 - Alcohol abuse, uncomplicated Status: Acute Assessment and Plan: Patient states that she has drank a 5th of whiskey daily since she was 17. She states that this is her longest time sober. She denies withdrawal symptoms at this time. - [facility] protocol - Protonix - Antiemetics - Continue folate, thiamine, and multivitamin supplementation Time Spent With Patient Time with patient: 25 - 35 minutes Subjective Date/time seen: 05/04/24 07:56 Interval history: 48-year-old female with history of hypertension and alcohol abuse who presented to the emergency department via private vehicle for evaluation of multiple complaints. The patient provides the following history. She has not been feeling well for several days with symptoms to include chills, lightheadedness, body aches, occasional nonproductive cough, nausea, vomiting, diarrhea, and mild dysuria. Patient is pleasant lying in bed. She continues to have vague symptom
[2024-05-04 09:44] LABS: Hepatitis B Surface Antigen Negative (Negative)
[2024-05-04 09:50] LABS: HAV RESULT Negative (Negative); Hepatitis B Core IgM Result Negative (Negative)
[2024-05-04 10:02] LABS: Hepatitis C Virus Antibody Negative (Negative)
[2024-05-04] MEDS: PANTOPRAZOLE SODIUM IV 40 MG VIAL IV PUSH (10:17)
[2024-05-04] MEDS: THIAMINE HCL 100 MG TABLET PO (14:26)
[2024-05-04] MEDS: amLODIPine BESYLATE 5 MG TABLET 10 MG PO (14:26)
[2024-05-04] MEDS: ACETAMINOPHEN 325 MG TABLET 650 MG PO (14:26)
[2024-05-04] MEDS: FOLIC ACID 1 MG TABLET PO (14:26)
--- NOTE | 2024-05-04 16:07 | PM.CNGS ---
Assessment and Plan Assessment and plan (1) Viral gastroenteritis: Code(s): A08.4 - Viral intestinal infection, unspecified Status: Acute Assessment and Plan: admitting symptoms sound very much like a viral syndrome or possibly a urinary tract infection. She did not report any abdominal pain on admission but later was noting upper abdominal pain. I believe this is the reason for her presentation to the emergency room. Her heavy alcohol use with nausea and vomiting as likely provided the reason for the rest of her electrolyte abnormalities. (2) Abnormal findings on imaging of biliary tract: Code(s): R93.2 - Abnormal findings on diagnostic imaging of liver and biliary tract Status: Acute Assessment and Plan: Gallstones and a dilated gallbladder noted. This was evaluated 24 months ago with even more suspicious findings for cholecystitis but hepatobiliary scan at that time was negative. I will order another HIDA scan for tomorrow morning. She definitely does have gallstones but I am not sure that her pain is not due to her alcohol use. If patient does have cholecystitis on HIDA scan, cholecystectomy certainly can be done. (3) Alcohol abuse: Code(s): F10.10 - Alcohol abuse, uncomplicated Status: Chronic Assessment and Plan: Admits to drinking a 5th of hard alcohol such as whiskey or mandy for many years. interested in rehab. Care coordination has been consulted. (4) Urinary tract infection: Code(s): N39.0 - Urinary tract infection, site not specified Status: Acute Assessment and Plan: Culture pending, UA very suspicious for urinary tract infection and patient is complaining of some dysuria. (5) BMI 45.0-49.9, adult: Code(s): Z68.42 - Body mass index [BMI] 45.0-49.9, adult Status: Chronic Assessment and Plan: Heavy alcohol abuse and morbid obesity with evidence of significant hepatic steatosis on imaging. This is a lifestyle that is likely to result in cirrhosis. (6) Hypokalemia: Code(s): E87.6 - Hypokalemia Status: Acute Assessment and Plan: Improved, continue supplementation. History of Present Illness Consult details Consult date: 05/05/24 Reason for consult: gallstones Requesting physician: Macy Gamble PA-C Narrative: Patient is a 48-year-old woman who presented to the emergency room yesterday with symptoms of a viral illness. She was not complaining of abdominal pain but rather complaining of chills, body aches, malaise, dysuria, nausea and vomiting, cough,, and lightheadedness. She had an regular cardiac rhythm in the emergency room with sinus tachycardia and frequent PACs. Her potassium was 2.4. Patient is noted to have a history of alcohol abuse and drinks a 5th of whiskey daily. This amounts to 16-17 shots of whiskey daily. She was noted to have an abnormal bilirubin AST and ALT on admission. Alkaline phosphatase was normal. Her abnormal liver enzymes have improved from yesterday to today but her still slightly abnormal. She had a CT scan of the abdomen and pelvis from the emergency room which showed gallstones but no evidence of cholecystitis. It also showed a uterine fibroid. Her urinalysis was suspicious for UTI but cultures are pending. She had an ultrasound today which showed gallstones but no gallbladder wall thickening. A positive Hawkins sign was noted. There was diffuse hepatic steatosis. The common bile duct was 5 mm in diameter. Possibly but because of the abnormal LFTs, an MRCP was also ordered. This showed no common bile duct stones. There were gallstones in the gallbladder and the gallbladder was distended. Interestingly, nearly 2 years ago exactly, patient was drinking heavily and came into the hospital with right upper quadrant pain and imaging showing gallstones and possibly cholecystitis. She had an hepatobiliary scan which was completely normal. Abnormal findings were felt
[2024-05-04] MEDS: SODIUM CHLORIDE 0.9% IV 1,000 ML 125 ML IV CONT (20:16)
[2024-05-04] MEDS: metroNIDAZOLE 500 MG TABLET PO (21:19)
[2024-05-04] MEDS: chlordiazePOXIDE (*CRX) 25 MG CAPSULE PO (22:23)
[2024-05-04] MEDS: traZODone HCL 50 MG TABLET 100 MG PO (22:23)
[2024-05-05] VITALS (7 sets, daily range): BP systolic 152–158; BP diastolic 91–106; PULSE 88–100; RESP 14–18; TEMP 36.2–36.6; O2SAT 96
[2024-05-05] MEDS: metroNIDAZOLE 500 MG TABLET PO ×2 (04:59→14:50)
[2024-05-05] MEDS: SODIUM CHLORIDE 0.9% IV 1,000 ML 125 ML IV CONT (04:59)
[2024-05-05] MEDS: ACETAMINOPHEN 325 MG TABLET 650 MG PO (06:11)
[2024-05-05] MEDS: FOLIC ACID 1 MG TABLET PO (08:30)
[2024-05-05] MEDS: THIAMINE HCL 100 MG TABLET PO (08:30)
[2024-05-05] MEDS: amLODIPine BESYLATE 5 MG TABLET 10 MG PO (08:30)
[2024-05-05] MEDS: PANTOPRAZOLE SODIUM IV 40 MG VIAL IV PUSH (08:33)
[2024-05-05 08:34] LABS: Basophils Absolute Auto 0.2 K/mm3 (0.0-0.1); Basophils Percent Auto 1.4 % (0.2-1.2); Eosinophils Absolute Auto 0.2 K/mm3 (0-0.3); Hematocrit 34.5 % (37.0-47.0); Hemoglobin 11.8 g/dL (12.0-15.0); Immature Granulocyte Absolute 0.15 K/mm3 (0.00-0.031); Immature Granulocyte Percent A 1.4 % (0-0.5); Lymphocytes Absolute Auto 2.36 K/mm3 (0.9-3.2); Lymphocytes Percent Auto 22.6 % (18.3-44.2); Mean Corpuscular HGB Conc 34.2 g/dl (32-36); Mean Corpuscular Hemoglobin 37.6 pg (26-34); Mean Corpuscular Volume 109.9 fl (80-100); Mean Platelet Volume 9.8 fl (7.4-10.4); Monocytes Percent Auto 9.4 % (2.6-8.5); Neutrophils Absolute Auto 6.6 K/mm3 (1.3-6.7); Neutrophils Percent Auto 63.2 % (45.5-73.1); Nucleated Red Blood Cells Perc 0.2 % (0.0-0.2); Platelet Count Result 233 k/mm3 (150-375); Red Blood Count 3.14 M/mm3 (4.2-5.4); Red Cell Distribution Width 20.5 % (11.5-14.5); White Blood Count 10.4 K/mm3 (4.5-10.0)
[2024-05-05 08:37] LABS: Alanine Aminotransferase 33 U/L (6-35); Albumin Level 3.5 g/dL (3.5-5.1); Alkaline Phosphatase 61 U/L (38-126); Anion Gap 4 mmol/L (4-12); Aspartate Amino Transferase 80 U/L (14-36); Bilirubin,Total 1.2 mg/dL (0.2-1.3); Blood Urea Nitrogen 8 mg/dL (7-17); Carbon Dioxide 34 mmol/L (22-30); Chloride 99 mmol/L (98-107); Estimated CRCL calculation 101 ml/min; Estimated Glomerular Filt Rate > 60; Glucose 106 mg/dL (65-110); Potassium 3.1 mmol/L (3.4-5.0); Sodium 137 mmol/L (137-145)
[2024-05-05 09:00] LABS: Anisocytosis 1+; Macrocytosis 1+ (NORMAL); Platelet Estimate Adequate (Adequate); Schistocytes None Seen
--- NOTE | 2024-05-05 10:04 | PM.PNGS ---
Progress Note: A&P Assessment and Plan (1) Viral gastroenteritis: Code(s): A08.4 - Viral intestinal infection, unspecified Status: Acute Assessment and Plan: Continue supportive management. Tolerated a diet well yesterday, but currently NPO for HIDA scan. Will await HIDA results. (2) Abnormal findings on imaging of biliary tract: Code(s): R93.2 - Abnormal findings on diagnostic imaging of liver and biliary tract Status: Acute Assessment and Plan: Patient had an episode of RUQ abdominal pain this morning with vomiting. Initial imaging showed gallstones and gallbladder dilation. HIDA scan ordered today to further evaluate for cholecystitis. If positive, then we will consider cholecystectomy. Will follow along. (3) Alcohol abuse: Code(s): F10.10 - Alcohol abuse, uncomplicated Status: Chronic Assessment and Plan: Encouraged cessation. Likely the cause of some of her issues on admission. (4) Urinary tract infection: Code(s): N39.0 - Urinary tract infection, site not specified Status: Acute Assessment and Plan: Culture pending, UA suspicious for urinary tract infection. Currently on IV ceftriaxone. (5) BMI 45.0-49.9, adult: Code(s): Z68.42 - Body mass index [BMI] 45.0-49.9, adult Status: Chronic (6) Hypokalemia: Code(s): E87.6 - Hypokalemia Status: Acute Assessment and Plan: Being monitored and replaced with oral KCL this morning. Subjective Subjective Date/Time Seen: 05/05/24 10:04 Interval history: This is a 48-year-old woman who presented to the ER with symptoms of a viral illness. She has a history of alcohol abuse. Workup showed elevated LFTs and CT evidence of gallstones but no evidence of cholecystitis. Ultrasound showed gallstones but no gallbladder wall thickening, positive Hawkins sign. MRCP showed a distended gallbladder with gallstones, but no common bile duct stones. Chart reviewed. The patient reports eating yesterday after admission and was not having any abdominal pain. Earlier this morning, she reports a sudden onset of dry heaves and right upper quadrant abdominal pain. She felt like this ?came out of nowhere?. She had not eaten any breakfast as she is NPO for the HIDA scan. Her pain has since improved prior to my evaluation. No other complaints at this time. Exam Const: General: comfortable and no acute distress Orientation/consciousness: patient oriented x3 GI: Inspection: non-distended and obesity GI Palp: Yes Soft to palpation, Yes Tenderness to palpation present (GI) (mild RUQ and epigastric tenderness), No Guarding due to palpation present (GI) and No Rebound tenderness present Auscultation: normal bowel sounds Objective Data Vital Signs Vital Signs: Vital Signs - 24 hr 05/04/24 10:15 05/04/24 12:00 05/04/24 14:00 Temperature 97.6 F Pulse Rate 84 79 Pulse Rate [Left Radial] Respiratory Rate 16 Blood Pressure 154/96 H Pulse Oximetry 98 Oxygen Delivery Room Air 05/04/24 16:00 05/04/24 20:36 05/04/24 20:00 Temperature 98.4 F Pulse Rate 92 92 97 Pulse Rate [Left Radial] Respiratory Rate 16 Blood Pressure 156/90 H Pulse Oximetry 98 Oxygen Delivery 05/04/24 20:00 05/04/24 22:21 05/05/24 00:00 Temperature Pulse Rate 99 Pulse Rate [Left Radial] 88 Respiratory Rate Blood Pressure Pulse Oximetry Oxygen Delivery Room Air 05/05/24 00:00 05/05/24 04:00 05/05/24 04:00 Temperature Pulse Rate 88 Pulse Rate [Left Radial] 99 88 Respiratory Rate Blood Pressure Pulse Oximetry Oxygen Delivery 05/05/24 04:52 Temperature 97.8 F Pulse Rate 100 Pulse Rate [Left Radial] Respiratory Rate 18 Blood Pressure 152/91 H Pulse Oximetry 96 Oxygen Delivery Intake/Output Intake/Output: Intake & Output 05/02/24 05/03/24 05/04/24 05/05/24 23:59 23:59 23:59 23:59 Intake Total 1680 1000 Balance 168
[2024-05-05] MEDS: POTASSIUM CHLORIDE 20 MEQ ER TABLET 40 MEQ PO (10:38)
[2024-05-05] MEDS: SODIUM CHLORIDE 0.9% IV 1,000 ML 80 ML IV CONT (15:01)
--- NOTE | 2024-05-05 15:31 | PM.DS ---
DS: Admitting Diagnosis Discharge Date 05/05/2024 Admitting Diagnosis UTI Cholelithiasis Transaminitis Hypokalemia Hypomagnesemia Hypertension Alcohol abuse DS: Discharge Diagnosis Discharge Diagnosis (1) Urinary tract infection: Code(s): N39.0 - Urinary tract infection, site not specified Status: Acute (2) Cholelithiasis: Code(s): K80.20 - Calculus of gallbladder without cholecystitis without obstruction Status: Deleted (3) Transaminitis: Code(s): R74.01 - Elevation of levels of liver transaminase levels Status: Acute (4) Hypokalemia: Code(s): E87.6 - Hypokalemia Status: Acute (5) Hypomagnesemia: Code(s): E83.42 - Hypomagnesemia Status: Acute (6) Hypertension: Code(s): I10 - Essential (primary) hypertension Status: Acute (7) Alcohol abuse: Code(s): F10.10 - Alcohol abuse, uncomplicated Status: Chronic DS: Summary Hospital Course Reason for hospitalization: UTI Cholelithiasis Transaminitis Hypokalemia Hypomagnesemia Hypertension Alcohol abuse Hospital Course: 48-year-old female with history of hypertension and alcohol abuse who presented to the emergency department via private vehicle for evaluation of multiple complaints. The patient provides the following history. She has not been feeling well for several days with symptoms to include chills, lightheadedness, body aches, occasional nonproductive cough, nausea, vomiting, diarrhea, and mild dysuria. Labs with slight leukocytosis and elevated LFTs. Urinalysis concerning for UTI, culture pending. Started on IV antibiotics and transitioned to PO at discharge. Imaging showed cholelithiasis with concern for cholecystitis. Patient started on flagyl and surgery consulted. HIDA scan negative. No need for surgical intervention. Electrolyte abnormalities and elevated LFTs likely due to patients alcohol abuse. Prior to discharge patient denied abdominal pain and tolerating a regular diet. Her potassium continued to fluctuate, started on supplementation and she will obtain a CMP at discharge. Encouraged alcohol cessation, resources were given from care coordination. Patient will continue pantoprazole, thiamine, and folic acid at discharge. Patient discharged home in stable condition. She will complete her antibiotic course for the UTI. Continue the potassium supplement, pantoprazole, thiamine, and folic acid as prescribed. Obtain a CMP outpatient to monitor potassium. Follow up with her PCP in 1-2 weeks. Status at Discharge Functional status at discharge: independent ambulation Time Spent with Patient Time attestation: Total time spent providing and/or coordinating discharge services: Time spent: Greater than 30 minutes Exam Narrative: AF HR 100 RR 18 SpO2 96 BP 152/91 General: obese female in no acute respiratory distress who is nontoxic appearing, lying semi recumbent in bed. HEENT: Normocephalic. Atraumatic. Pupils equal round reactive to light. Extraocular movement intact. Sclera clear and anicteric. No facial asymmetry. Chest: Lungs are clear to auscultation bilaterally. No wheezes or crackles. CV: Heart was regular rate and rhythm. S1-S2. No murmurs, gallops, or rubs. Abd: Abdomen was soft and obese. Nontender to palpation. Nondistended. Positive bowel sounds. No organomegaly or masses. Ext: No clubbing, cyanosis, or edema. 2+ DP pulses bilaterally. Neuro: Patient is alert and oriented x4. Cranial nerves 2-12 are intact. Speech is clear. Psych: Normal mood and affect. Patient is pleasant and cooperative. Skin: Warm and dry. No rashes noted. DS: Data Data Completed and Pending Completed studies during hospitalization: HIDA RUQ US MRCP Abdomen/pelvis CT Chest XR Pending studies at discharge: Urine culture Labs on day of discharge: Labs from last 24 hours 05/05/24 08:20 WBC 10.4 H RBC 3.14 L Hgb 11.8 L Hct 34.5 L MCV 109.9 H MCH 37.6 H MCHC 34.2 RDW
--- NOTE | 2024-05-07 07:36 | PC.NURSE ---
Urine cx growing E. coli. Susceptible to Amoxicillin which pt was sent home on.
== END 2024-05-05 16:46 | disposition home or self-care (01) ==
LOC: ANHED 16:37 → ANH2MED 17:45
PROVIDERS: Physician Assistant; Admitting Provider Internal Medicine; Emergency Provider Emergency Medicine; PCP Physician Assistant; Visit Provider Student in an Organized Health Care Education/Training Program
DX: N39.0 Urinary tract infection, site not specified (principal); A08.4 Viral intestinal infection, unspecified; E83.42 Hypomagnesemia; E87.6 Hypokalemia; R74.01 Elevation of levels of liver transaminase levels; I48.91 Unspecified atrial fibrillation; I10 Essential (primary) hypertension; F10.10 Alcohol abuse, uncomplicated; K80.20 Calculus of gallbladder without cholecystitis without obstruction; E66.01 Morbid (severe) obesity due to excess calories; Z68.42 Body mass index [BMI] 45.0-49.9, adult; Z20.822 Contact with and (suspected) exposure to COVID-19
CPT/HCPCS: 36415; 71045; 74177; 74183; 76376; 76705; 78226; 80048; 80053; 80074; 81001; 82247; 82948; 83735; 84450; 84460; 84478; 84484; 85025; 85027; 85610; 85730; 87077; 87086; 87088; 87186; 87637; 93005; 96361; 96365; 96374; 96375; 99285; A9270; A9537; A9577; C9113; G0378; J0696; J0780; J1200; J3475; J3480; J7030; J7040; J7120; Q9967